=== PATIENT | female | born 2000 | race Caucasian/White ===

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

== ENCOUNTER 2019-01-30 23:11 | Emergency (ER) | payer SELFPAY ==
[~2019-01-30] VITALS: Ht 170.2 cm; Wt 111.1 kg
--- NOTE | 2019-01-30 23:37 | ED Pediatric Illness ---
HPI-Pediatric Illness General Chief Complaint: Abdominal/GI Problems Stated Complaint: SHARP ABD PAIN Source: patient Exam Limitations: no limitations History of Present Illness Date Seen by Provider: January 30, 2019 Time Seen by Provider: 23:34 Initial Comments Patient is a 18-year-old female presents with a sharp sudden onset left lower quadrant/pelvic pain starting approximately 24 hours ago. Pain is described as dull nonradiating is rated 9/10. Pain is not associated with urinary frequency urgency or dysuria. No hematuria. No flank pain, nausea vomiting. Denies constipation diarrhea. Last bowel movement was yesterday and was reported as normal. Last menstrual period was 3 days ago. Patient is currently taking oral contraceptive pill. No history of kidney stones. Denies history of ovarian cysts. Does report fatigue secondary No fever chills, sweats. No other acute symptoms or complaints. Timing/Duration: 24 hours Severity: severe Associated Symptoms: less active Modifying Factors: improves with Rest Allergies and Home Medications Allergies Coded Allergies: azithromycin (Verified Allergy, Unknown, hives, 01/30/19) "breaks me out" Patient Home Medication List Home Medication List Reviewed: Yes Review of Systems Review of Systems Constitutional: see HPI EENTM: see HPI, no symptoms reported Respiratory: no symptoms reported Cardiovascular: no symptoms reported Gastrointestinal: see HPI Genitourinary: see HPI Musculoskeletal: no symptoms reported Skin: no symptoms reported Psychiatric/Neurological: No Symptoms Reported, Emotional Problems PMH-Pediatrics Recent Foreign Travel: No Contact w/other who traveled: No Physical Exam-Pediatric Physical Exam Vital Signs - First Documented Capillary Refill : Height, Weight, BMI Height: '" Weight: lbs. oz. kg; BMI Method: General Appearance: no acute distress, active HENT: PERRL, nose normal Neck: full range of motion, supple Respiratory: lungs clear, normal breath sounds Gastrointestinal: soft, tenderness (left lower quadrant/pelvic, no palpable masses or hernias.) Extremities: normal range of motion Neurologic/Psychiatric: kitman II-XII nml as tested, no motor/sensory deficits Skin: normal color, warm/dry Progress/Results/Core Measures Results/Orders Lab Results Laboratory Tests Test 01/30/19 23:19 Range/Units Urine Color YELLOW Urine Clarity SLT CLOUDY Urine pH 6.0 5-9 Urine Specific [place] 1.025 H 1.016-1.022 Urine Protein TRACE NEGATIVE Urine Glucose (UA) NEGATIVE NEGATIVE Urine Ketones NEGATIVE NEGATIVE Urine Nitrite NEGATIVE NEGATIVE Urine Bilirubin NEGATIVE NEGATIVE Urine Urobilinogen 1.0 NORMAL MG/DL Urine Leukocyte Esterase TRACE H NEGATIVE Urine RBC (Auto) 3+ H NEGATIVE Urine Test NEGATIVE NEGATIVE My Orders Orders - MARY CAGLE DO Hcg,Qualitative Urine (01/30/19 23:30) Oxycodone/Apap 5/325mg Tablet (Percocet (01/30/19 23:45) Urinalysis Dipstick Only (01/31/19 00:01) Ct Abdomen/Pelvis Wo (01/31/19 00:01) Medications Given in ED Current Medications Medications Dose Ordered Sig/Kevin Route Start Time Stop Time Status Last Admin Dose Admin Oxycodone/ Acetaminophen 1 tab ONCE ONCE PO 01/30/19 23:45 01/30/19 23:46 DC 01/30/19 23:45 1 TAB Vital Signs/I&O 01/30/19 01/30/19 23:24 23:24 Temp 97.6 97.6 Pulse 94 94 Resp 20 20 B/P (MAP) 135/86 135/86 Pulse Ox 96 O2 Delivery Room Air Room Air Departure Communication (Admissions) CT abdomen and pelvis without contrast: No acute intra-abdominal/pelvic process identified per radiologist. Patient's abdomen soft, nonsurgical. Pain controlled treatment. Recommend supportive care with PCP follow-up. Return depressions reviewed. Impression Primary Impression: Pelvic pain Disposition: 01 HOME, SELF-CARE Condition: Improved Departure-Patient Inst. Referrals: NO,LOCAL PHYSICIAN (PCP) Primary Care Physician Patient Instructions: Acute Pelvic Pain (DC) Add. Discharge Instructions: You were evaluated in the emergency department for pelvic pain. A urinalysis was performed and does not show evidence of infection. CT scan was performed does not demonstrate kidney stones or other acute sources of pain. Please take ibuprofen 3 times daily and hydrocodone as needed for additional relief. Follow up with your PCP in 2-3 days for reevaluation if symptoms persist. Return to the ED if new or worsening symptoms. All discharge instructions reviewed with patient and/or family. Voiced understanding. Scripts Hydrocodone/Acetaminophen ([place] 5-325 Tablet) 1 Each Tablet 1 TAB PO Q4-6HR for Pain MDD 10 TABS for 3 Days, #10 TAB Prov: MARY CAGLE DO 01/31/19 MARY CAGLE DO January 30, 2019 23:37
[2019-01-30] MEDS ORDERED: oxyCODONE/APAP 5/325MG (PERCOCET 5) TABLET PO ONE (23:45)
--- OUTSIDE RECORDS SUMMARY | 2019-01-31 00:02 | XMS REPORT | Continuity of Care Document ---
Author Organization Unknown Address Unknown Allergies There is no data. Medications There is no data. Problems There is no data. Procedures There is no data. Results Test Result Range HCG, QUANTITATIVE - 01/02/19 15:20 HCG, TOTAL, QN <2 mIU/mL NRG GC/CHLAMYDIA (SWAB OR URINE)-RAPID - 01/02/19 15:33 CHLAMYDIA TRACHOMATIS RNA, TMA NOT DETECTED NOT DETECTED NEISSERIA GONORRHOEAE RNA, TMA NOT DETECTED NOT DETECTED COMMENT NRG HCG, QUANTITATIVE - 01/02/19 15:33 HCG, TOTAL, QN NRG Encounters ACCT No. Visit Date/Time Discharge Status Pt. Type Provider Facility Loc./Unit Complaint [id number] 12/10/2018 13:40:00 12/10/2018 23:59:59 CLS Outpatient [facility] [id number] 01/02/2019 14:49:00 Document Registration [id number] 01/02/2019 14:45:00 Document Registration
[2019-01-31 00:05] LABS: BILIRUBIN,URINE NEGATIVE (NEGATIVE); CLARITY,URINE SLT CLOUDY; COLOR,URINE YELLOW; GLUCOSE, URINE (UA) NEGATIVE (NEGATIVE); KETONES,URINE NEGATIVE (NEGATIVE); LEUKOCYTE ESTERASE ,URINE TRACE (NEGATIVE); NITRITE,URINE NEGATIVE (NEGATIVE); PROTEIN,URINE TRACE (NEGATIVE)
[2019-01-31] MEDS ORDERED: IBUPROFEN TABLET 200 MG TAB PO ONE ×2 (00:46→01:00)
[2019-01-31] MEDS ORDERED: HYDR-4226 PO (00:47)
--- NOTE | 2019-01-31 06:33 | Diagnostic Imaging Report ---
PROCEDURE: CT abdomen and pelvis without contrast. TECHNIQUE: Multiple contiguous axial images were obtained through the abdomen and pelvis without the use of intravenous contrast. Auto Exposure Controls were utilized during the CT exam to meet ALARA standards for radiation dose reduction. INDICATION: Left lower quadrant pain COMPARISON: None available FINDINGS: The visualized lung bases are clear. The unenhanced liver, spleen, adrenal glands, and pancreas are unremarkable. The kidneys and bilateral ureters are unremarkable. No aneurysmal dilatation of the abdominal aorta. The gallbladder is completely decompressed. The urinary bladder is decompressed, therefore not well evaluated. The uterus and adnexal structures are unremarkable. The appendix is unremarkable. No bowel obstruction or pneumatosis. No significant adenopathy, free air, or free fluid within the abdomen or pelvis. No acute osseous abnormality. IMPRESSION: No acute abnormality. Agree with preliminary interpretation. Dictated by: Dictated on workstation # [id number]
== END 2019-01-31 00:53 | disposition home or self-care (01) ==
LOC: EDUNIT# 23:11 → ER FS 23:14
DX: R10.2 Pelvic and perineal pain (principal); Z88.1 Allergy status to other antibiotic agents
CPT/HCPCS: 74176; 81002; 84703

== ENCOUNTER 2019-05-19 15:52 | Emergency (ER) | payer SELFPAY ==
[~2019-05-19] VITALS: Ht 170.1 cm; Wt 102.2 kg
[~2019-05-19 15:52] MED LIST: HYDR-4226 PO
[2019-05-19] MEDS ORDERED: ACTIVATED CHARCOAL/SORBITOL 50 G/240 ML BTL ONE (16:05)
[2019-05-19] MEDS ORDERED: CHARCOAL/AQUEOUS 50 GM/240 ML BTL ONE (16:07)
[2019-05-19] MEDS ORDERED: CHARCOAL/AQUEOUS 50 GM/240 ML BTL PO ONE (16:15)
--- NOTE | 2019-05-19 16:43 | Diagnostic Imaging Report ---
INDICATION: Drug overdose. EXAMINATION: Portable chest at 4:09 PM. FINDINGS: The heart size and pulmonary vascularity are normal. The lungs are clear. There are no effusions or pneumothoraces. IMPRESSION: Negative chest. Dictated by: Dictated on workstation # [id number]
[2019-05-19 16:45] LABS: BASOPHILS % (AUTO) 0 % (0-10); EOSINOPHILS % (AUTO) 5 % (0-10); HEMATOCRIT 46 % (35-52); HEMOGLOBIN 14.7 G/DL (11.5-16.0); LYMPHOCYTES % (AUTO) 20 % (12-44); MEAN CORPUSCULAR HEMOGLOBIN 27 PG (25-34); MEAN CORPUSCULAR HGB CONC 32 G/DL (32-36); MEAN CORPUSCULAR VOLUME 86 FL (80-99); MEAN PLATELET VOLUME 12.1 FL (7.4-10.4); MONOCYTES % (AUTO) 5 % (0-12); NEUTROPHILS % (AUTO) 70 % (42-75); PLATELET COUNT 210 10^3/uL (130-400); RED CELL DISTRIBUTION WIDTH 13.7 % (10.0-14.5); WHITE BLOOD COUNT 9.9 10^3/uL (4.3-11.0)
[2019-05-19 16:46] LABS: CARBON DIOXIDE 25 MMOL/L (21-32); CHLORIDE 98 MMOL/L (98-107); EOSINOPHILS # (AUTO) 0.5 10^3/uL (0.0-0.3); MONOCYTES # (AUTO) 0.5 X 10^3 (0.0-1.0); NEUTROPHILS # (AUTO) 6.9 X 10^3 (1.8-7.8); POTASSIUM 3.8 MMOL/L (3.6-5.0); SODIUM 137 MMOL/L (135-145)
[2019-05-19 16:47] LABS: ACETAMINOPHEN < 10 UG/ML (10-30); ALANINE AMINOTRANSFERASE 37 U/L (0-55); ALBUMIN 4.1 GM/DL (3.2-4.5); ALKALINE PHOSPHATASE 73 U/L (40-136); BILIRUBIN,TOTAL 0.4 MG/DL (0.1-1.0); BUN/CREATININE RATIO 11; CALCIUM 9.8 MG/DL (8.5-10.1); CREATININE SERUM 0.87 MG/DL (0.60-1.30); GFR ESTIMATED > 60; GLUCOSE 91 MG/DL (70-105); SALICYLATE < 0.3 MG/DL (5.0-20.0); TOTAL PROTEIN 7.4 GM/DL (6.4-8.2)
[2019-05-19 18:15] LABS: AMPHETAMINE SCREEN, URINE NEGATIVE (NEGATIVE); BARBITURATE SCREEN URINE NEGATIVE (NEGATIVE); BENZODIAZEPINES SCREEN URINE NEGATIVE (NEGATIVE); CANNABINOID SCREEN, URINE NEGATIVE (NEGATIVE); COCAINE SCREEN URINE NEGATIVE (NEGATIVE); METHADONE STAT NEGATIVE (NEGATIVE); METHAMPHETAMINE SCREEN URINE S NEGATIVE (NEGATIVE); OPIATE SCREEN URINE NEGATIVE (NEGATIVE); OXYCODONE STAT NEGATIVE (NEGATIVE); PROPOXYPHENE STAT NEGATIVE (NEGATIVE); TRICYCLIC ANTIDEPRESSANTS SCRE NEGATIVE (NEGATIVE)
--- NOTE | 2019-05-19 18:22 | NUR ---
Call to [facility] to request screener. Pt's info requested prior to planning this screening wanting insurance and Social Security # which can not be provided prior to tx. Pt is received to ER irregardless of patient's financial. Again proceed with needing to fax the medical screening results to them as requested.
--- NOTE | 2019-05-19 19:03 | ED Neurological Problem ---
General Chief Complaint: Overdose Stated Complaint: OVERDOSE Nursing Triage Note: Patient arrival per [facility] for OD. The EMS report was took approx 30 tabs of Latuda and the Fire First responders on scene called Poison Control for recommendation. Activated charcoal recommended and evaluation in ER. Pt arrives without IV or treatment. Source: patient Exam Limitations: no limitations History of Present Illness Date Seen by Provider: May 19, 2019 Time Seen by Provider: 15:00 Initial Comments Patient is an 18-year-old female with history of bipolar schizophrenia who states that she intentionally took #5, Latuda tablets approximately 45 minutes prior to ED arrival and attempt to go to sleep. Patient denies co-ingestant. She denies intent to harm or kill her self. Patient told a friend who then contacted EMS. Reports feeling drowsy. Denies chest pain palpitations headache. Denies drugs not call. Reports prior overdoses with inpatient hospitalization in [place] at age 15. Timing/Duration: 1 hour Associated Symptoms: denies symptoms Allergies and Home Medications Allergies Coded Allergies: azithromycin (Verified Allergy, Unknown, hives, 01/30/19) "breaks me out" Home Medications Hydrocodone/Acetaminophen 1 Each Tablet, 1 TAB PO Q4-6HR Prescribed by: MARY CAGLE on 01/31/19 0047 Patient Home Medication List Home Medication List Reviewed: Yes Review of Systems Review of Systems Constitutional: see HPI Eyes: See HPI Ears, Nose, Mouth, Throat: see HPI Respiratory: see HPI Gastrointestinal: see HPI Genitourinary: see HPI : No (Denies , can not afford BCP's) Musculoskeletal: see HPI Endocrine: See HPI Past Etqctze-Ixgqip-Phheaj Hx Patient Social History Alcohol Use: Rarely Uses Number of Drinks Today: 0 Recreational Drug Use: No Smoking Status: Current Everyday Smoker Type Used: Cigarettes Recent Foreign Travel: No Contact w/Someone Who Travel: No Recent Infectious Disease Expo: No Recent Hopitalizations: No Immunizations Up To Date PED Vaccines UTD: Yes Seasonal Allergies Seasonal Allergies: No Past Medical History Surgeries: No Respiratory: No Cardiac: No Neurological: No Genitourinary: No Gastrointestinal: No Musculoskeletal: No Endocrine: No HEENT: No Cancer: No Psychosocial: Yes Bipolar Integumentary: No Blood Disorders: No Physical Exam Vital Signs Vital Signs - First Documented 05/19/19 15:52 Temp 36.8 Pulse 88 Resp 18 B/P (MAP) 138/79 O2 Delivery Room Air Capillary Refill : Height, Weight, BMI Height: 5'7.00" Weight: 245lbs. 0oz. [id number]; 35.00 BMI Method:Stated General Appearance: WD/WN, no apparent distress HEENT: PERRL/EOMI, normal ENT inspection Neck: full range of motion, supple Respiratory: chest non-tender, lungs clear Cardiovascular: normal peripheral pulses, regular rate, rhythm, no edema Gastrointestinal: normal bowel sounds, non tender, soft Extremities: normal range of motion, non-tender, normal inspection Neurologic/Psychiatric: economic manager II-XII nml as tested, no motor/sensory deficits, alert, normal mood/affect, oriented x 3, other (no SI or HI.) Crainal Nerves: normal hearing, normal speech, PERRL Progress/Results/Core Measures Results/Orders Lab Results Laboratory Tests Test 05/19/19 16:00 05/19/19 16:26 Range/Units White Blood Count 9.9 4.3-11.0 10^3/uL Red Blood Count 5.41 4.35-5.85 10^6/uL Hemoglobin 14.7 11.5-16.0 G/DL Hematocrit 46 35-52 % Mean Corpuscular Volume 86 80-99 FL Mean Corpuscular Hemoglobin 27 25-34 PG Mean Corpuscular Hemoglobin Concent 32 32-36 G/DL Red Cell Distribution Width 13.7 10.0-14.5 % Platelet Count 210 130-400 10^3/uL Mean Platelet Volume 12.1 H 7.4-10.4 FL Neutrophils (%) (Auto) 70 42-75 % Lymphocytes (%) (Auto) 20 12-44 % Monocytes (%) (Auto) 5 0-12 % Eosinophils (%) (Auto) 5 0-10 % Basophils (%) (Auto) 0 0-10 % Neutrophils # (Auto) 6.9 1.8-7.8 X 10^3 Lymphocytes # (Auto) 2.0 1.0-4.0 X 10^3 Monocytes # (Auto) 0.5 0.0-1.0 X 10^3 Eosinophils # (Auto) 0.5 H 0.0-0.3 10^3/uL Basophils # (Auto) 0.0 0.0-0.1 10^3/uL Sodium Level 137 135-145 MMOL/L Potassium Level 3.8 3.6-5.0 MMOL/L Chloride Level 98 98-107 MMOL/L Carbon Dioxide Level 25 21-32 MMOL/L Anion Gap 14 5-14 MMOL/L Blood Urea Nitrogen 10 7-18 MG/DL Creatinine 0.87 0.60-1.30 MG/DL Estimat Glomerular Filtration Rate > 60 BUN/Creatinine Ratio 11 Glucose Level 91 70-105 MG/DL Calcium Level 9.8 8.5-10.1 MG/DL Corrected Calcium 9.7 8.5-10.1 MG/DL Total Bilirubin 0.4 0.1-1.0 MG/DL Aspartate Amino Transf (AST/SGOT) 31 5-34 U/L Alanine Aminotransferase (ALT/SGPT) 37 0-55 U/L Alkaline Phosphatase 73 40-136 U/L Total Protein 7.4 6.4-8.2 GM/DL Albumin 4.1 3.2-4.5 GM/DL Serum Test, Qualitative NEGATIVE NEGATIVE Salicylates Level < 0.3 L 5.0-20.0 MG/DL Acetaminophen Level < 10 L 10-30 UG/ML Serum Alcohol < 10 <10 MG/DL Urine Opiates Screen NEGATIVE NEGATIVE Urine Oxycodone Screen NEGATIVE NEGATIVE Urine Methadone Screen NEGATIVE NEGATIVE Urine Propoxyphene Screen NEGATIVE NEGATIVE Urine Barbiturates Screen NEGATIVE NEGATIVE Ur Tricyclic Antidepressants Screen NEGATIVE NEGATIVE Urine Phencyclidine Screen NEGATIVE NEGATIVE Urine Amphetamines Screen NEGATIVE NEGATIVE Urine Methamphetamines Screen NEGATIVE NEGATIVE Urine Benzodiazepines Screen NEGATIVE NEGATIVE Urine Cocaine Screen NEGATIVE NEGATIVE Urine Cannabinoids Screen NEGATIVE NEGATIVE My Orders Orders - MARY CAGLE DO Cbc With Automated Diff (05/19/19 16:04) Comprehensive Metabolic Panel (05/19/19 16:04) Ekg Tracing (05/19/19 16:04) Hcg,Qualitative Serum (05/19/19 16:10) Drug Screen Stat (Urine) (05/19/19 16:10) Alcohol (05/19/19 16:10) Acetaminophen (05/19/19 16:10) Salicylate (05/19/19 16:10) Charcoal Activated Aqueous (Actidose Aqu (05/19/19 16:15) Charcoal/Sorbitol Oral Susp (Actidose/So (05/19/19 16:05) Charcoal Activated Aqueous (Actidose Aqu (05/19/19 16:07) Chest 1 View Ap/Pa Only (05/19/19 ) Medications Given in ED Current Medications Medications Dose Ordered Sig/Kevin Route Start Time Stop Time Status Last Admin Dose Admin Charcoal 50 gm ONCE ONCE PO 05/19/19 16:15 05/19/19 16:16 DC 05/19/19 16:15 50 GM Vital Signs/I&O 05/19/19 15:52 Temp 36.8 Pulse 88 Resp 18 B/P (MAP) 138/79 O2 Delivery Room Air Departure Communication (Admissions) Patient observed in the ED 4 hours post overdose. Vital signs remained stable. Patient reports initially feeling fatigued with slurred speech but now feels symptoms have now improved. Patient screened bite calcite professional. Reportedly, the patient told the screener that she did not really take the medications and that it was attempted for attention. The consultants recommendations are to discharge the patient home with outpatient follow-up. Patient was comfortable with discharge plan Impression Primary Impression: Overdose Disposition: 01 HOME, SELF-CARE Condition: Stable Departure-Patient Inst. Referrals: NO,LOCAL PHYSICIAN (PCP) Primary Care Physician Add. Discharge Instructions: Please take medications only as prescribed and follow-up with your corrections caseworker or mental health counsellor in the next 1-2 days. Return to the ED if symptoms worsen. All discharge instructions reviewed with patient and/or family. Voiced understanding. MARY CAGLE DO May 19, 2019 19:03
--- NOTE | 2019-05-19 19:07 | NUR ---
Patient resting awake after trying to get up at 1900 stating wanting to go home. Explained work up not completed and screener needs to return call and begin screening hopefully shortly. Pt agrees to remain with SL in place and monitors on as ordered. Report to Anne Marie MULLINS.
--- NOTE | 2019-05-19 19:31 | NUR ---
PT. TALKING WITH MENTAL HEALTH AT THIS TIME.
--- NOTE | 2019-05-19 19:32 | NUR ---
PT. REPORTED TO MENTAL HEALTH THAT SHE TOOK 10 LATUDA
== END 2019-05-19 20:16 | disposition home or self-care (01) ==
LOC: EDUNIT# 16:01 → ER FS 16:02
DX: T43.592A Poisoning by other antipsychotics and neuroleptics, intentional self-harm, initial encounter (principal); F31.9 Bipolar disorder, unspecified; F20.9 Schizophrenia, unspecified; F17.210 Nicotine dependence, cigarettes, uncomplicated; Z88.1 Allergy status to other antibiotic agents
CPT/HCPCS: 36415; 71045; 80053; 80306; 80320; 80329; 84703; 85025; 93005

== ENCOUNTER 2020-05-02 14:47 | Emergency (ER) | payer OTHER ==
[~2020-05-02] VITALS: Ht 170.2 cm; Wt 112.0 kg
[2020-05-02 14:52] VITALS: BP 133/78
--- NOTE | 2020-05-02 14:56 | ED General ---
General Chief Complaint: Trauma-Non Activation Stated Complaint: LT ANKLE PAIN; BACK/RIB PAIN History of Present Illness Date Seen by Provider: May 02, 2020 Time Seen by Provider: 14:55 Initial Comments Patient is a 19 y/o female who comes to the ER today c/o injury to the left ankle. She jumped off a roof attempting to land on a trampoline but states she missed. No head injury or LOC. She has no n/v or vision changes. Complains of generalized back pain and rib pain. Primary complaint is left ankle pain and swelling. Allergies and Home Medications Allergies Coded Allergies: azithromycin (Verified Allergy, Unknown, hives, 01/30/19) "breaks me out" Home Medications Hydrocodone/Acetaminophen 1 Each Tablet, 1 TAB PO Q4-6HR Prescribed by: MARY CAGLE on 01/31/19 0047 Patient Home Medication List Home Medication List Reviewed: Yes Review of Systems Review of Systems Constitutional: no symptoms reported EENTM: no symptoms reported Respiratory: no symptoms reported Cardiovascular: no symptoms reported Musculoskeletal: see HPI Skin: no symptoms reported All Other Systems Reviewed Negative Unless Noted: Yes Past Qghsluh-Mcbuvz-Btcbfc Hx Patient Social History Type Used: Cigarettes Recent Hopitalizations: No Immunizations Up To Date PED Vaccines UTD: Yes Seasonal Allergies Seasonal Allergies: No Past Medical History Surgeries: No Respiratory: No Cardiac: No Neurological: No Genitourinary: No Gastrointestinal: No Musculoskeletal: No Endocrine: No HEENT: No Cancer: No Psychosocial: Yes Bipolar Integumentary: No Blood Disorders: No Physical Exam Vital Signs Vital Signs - First Documented 05/02/20 14:52 Temp 36.1 Pulse 107 Resp 16 B/P (MAP) 133/78 (96) Pulse Ox 97 O2 Delivery Room Air Capillary Refill : Height, Weight, BMI Height: 5'7.00" Weight: 245lbs. 0oz. 111.381966ie; 35.00 BMI Method:Stated General Appearance: No Apparent Distress, WD/WN HEENT: PERRL/EOMI, TMs Normal, Normal ENT Inspection Neck: Full Range of Motion, Non Tender Respiratory: Lungs Clear, Normal Breath Sounds Cardiovascular: Regular Rate, Rhythm Back: No CVA Tenderness, No Vertebral Tenderness Extremity: Normal Capillary Refill, Other (mild soft tissue swelling and point tenderness along the lateral malleolus left ankle. 2+ dp pulses. Sensation to light touch intact over all dermatomes. No laxity with ligamentous testing.) Skin: Normal Color Progress/Results/Core Measures Suspected Sepsis SIRS Temperature: Pulse: Respiratory Rate: Blood Pressure / Mean: Results/Orders My Orders Orders - MARIA R VALENTINO DO Ankle 3 View Left (05/02/20 14:56) Chest 1 View Ap/Pa Only (05/02/20 15:02) Air Strup Ankle Brace (05/02/20 15:28) Vital Signs/I&O 05/02/20 14:52 Temp 36.1 Pulse 107 Resp 16 B/P (MAP) 133/78 (96) Pulse Ox 97 O2 Delivery Room Air Capillary Refill : Progress Note : Time: 14:58 Progress Note Patient is seen and examined. PE as documented above. Plain film XR of ankle ordered. 15:45: No acute findings on plain film imaging. Patient is discharged to home. Aircast applied for comfort. Recommended to use tylenol or motrin as needed for discomfort. RICE therapy. F/u with PCP as needed. Departure Impression Primary Impression: Ankle sprain Additional Impression: Contusion of left foot Disposition: 01 HOME, SELF-CARE Condition: Improved Departure-Patient Inst. Referrals: [facility] (PCP) Primary Care Physician KERRIE CALVIN APRN (Family) Primary Care Physician MARIA R VALENTINO DO May 02, 2020 14:56
--- NOTE | 2020-05-02 15:29 | Diagnostic Imaging Report ---
PATIENT HISTORY: fall, rib pain. TECHNIQUE: Single frontal view of the chest. COMPARISON: None FINDINGS: The lung volumes are normal. No focal consolidation is seen. No large pleural effusion or pneumothorax is seen. The cardiomediastinal silhouette is normal in size and contour. No displaced rib fracture is seen. IMPRESSION: No acute pulmonary abnormality seen. No displaced rib fracture seen. Dictated by: Dictated on workstation # [id number]
--- NOTE | 2020-05-02 15:35 | Diagnostic Imaging Report ---
HISTORY: Trauma, left ankle pain. COMPARISON: None. TECHNIQUE: Three views of the left ankle. FINDINGS: Alignment is normal. Ankle mortise is symmetric. There is a moderate left ankle joint effusion. A small hyperdensity is seen dorsal to the talar head. IMPRESSION: 1. Small hyperdensity dorsal to the left talar head could represent a chip fracture or avulsion injury of the anterior capsule. No other fracture is seen. 2. Moderate left ankle joint effusion. Dictated by: Dictated on workstation # [id number]
== END 2020-05-02 15:40 | disposition home or self-care (01) ==
LOC: EDUNIT# 14:47 → ER FS 14:49
DX: S93.402A Sprain of unspecified ligament of left ankle, initial encounter (principal); S90.32XA Contusion of left foot, initial encounter; Z88.1 Allergy status to other antibiotic agents; Y93.39 Activity, other involving climbing, rappelling and jumping off
CPT/HCPCS: 71045; 73610

== ENCOUNTER 2020-11-17 22:21 | Emergency (ER) | payer SELFPAY ==
[~2020-11-17] VITALS: Ht 172.7 cm; Wt 116.4 kg
[2020-11-17 22:30] VITALS: BP 146/84
--- NOTE | 2020-11-17 22:44 | ED GU-Female ---
General Chief Complaint: Female Reproductive Stated Complaint: BLOODY DISCHARGE FROM VAGINAL AREA/SORENESS History of Present Illness Date Seen by Provider: Nov 17, 2020 Time Seen by Provider: 22:39 Initial Comments 19-year-old female presents with some dysuria, vaginal discomfort and suprapubic pain. Patient reports that her last menstrual period started on 11/08/2020. That she had intercourse on 11/12/2020 while she is still on her menstrual cycle. Patient reports that she had not had intercourse in 3 years prior to that. That she is a little sore in the vaginal vault. She presents today because she just wants to be evaluated make sure things okay. Patient reports she had protected intercourse. Allergies and Home Medications Allergies Coded Allergies: azithromycin (Verified Allergy, Unknown, hives, 01/30/19) "breaks me out" Home Medications Hydrocodone/Acetaminophen 1 Each Tablet, 1 TAB PO Q4-6HR Prescribed by: MARY CAGLE on 01/31/19 0047 Sulfamethoxazole/Trimethoprim 1 Each Tablet, 1 EACH PO BID Prescribed by: LOUIS ALCOCER on 11/17/20 2302 Patient Home Medication List Home Medication List Reviewed: Yes Review of Systems Review of Systems Constitutional: No chills, No fever Respiratory: no symptoms reported Cardiovascular: no symptoms reported Gastrointestinal: no symptoms reported Genitourinary: see HPI Musculoskeletal: no symptoms reported Skin: no symptoms reported Psychiatric/Neurological: No Symptoms Reported Endocrine: No Symptoms Reported Hematologic/Lymphatic: No Symptoms Reported Past Blajzpy-Jchahd-Xpnudd Hx Past Med/Social Hx: Reviewed Nursing Past Med/Soc Hx Patient Social History Type Used: Electronic/Vapor 2nd Hand Smoke Exposure: Yes Recent Hopitalizations: No Immunizations Up To Date PED Vaccines UTD: Yes Seasonal Allergies Seasonal Allergies: No Past Medical History Surgeries: No Respiratory: No Cardiac: No Neurological: No Genitourinary: No Gastrointestinal: No Musculoskeletal: No Endocrine: No HEENT: No Cancer: No Psychosocial: Yes Bipolar Integumentary: No Blood Disorders: No Physical Exam Vital Signs Vital Signs - First Documented 11/17/20 22:30 Temp 35.9 Pulse 95 Resp 16 B/P (MAP) 146/84 (104) Pulse Ox 99 O2 Delivery Room Air Capillary Refill : Height, Weight, BMI Height: 5'7.00" Weight: 245lbs. 0oz. 111.892062hx; 38.00 BMI Method:Stated General Appearance: no apparent distress Cardiovascular: normal peripheral pulses, regular rate, rhythm Respiratory: chest non-tender, lungs clear Gastrointestinal: non tender, soft Extremities: normal range of motion Neurologic/Psychiatric: alert, normal mood/affect, oriented x 3 Skin: tattoos/piercings Progress/Results/Core Measures Suspected Sepsis SIRS Temperature: Pulse: Respiratory Rate: Blood Pressure / Mean: Results/Orders Lab Results Laboratory Tests Test 11/17/20 22:25 Range/Units Urine Color DK YELLOW Urine Clarity SLT CLOUDY Urine pH 6.0 5-9 Urine Specific Marshall >=1.030 1.016-1.022 Urine Protein TRACE H NEGATIVE Urine Glucose (UA) NEGATIVE NEGATIVE Urine Ketones TRACE H NEGATIVE Urine Nitrite NEGATIVE NEGATIVE Urine Bilirubin 1+ H NEGATIVE Urine Urobilinogen 0.2 < = 1.0 MG/DL Urine Leukocyte Esterase NEGATIVE NEGATIVE Urine RBC (Auto) 2+ H NEGATIVE Urine RBC 5-10 H /HPF Urine WBC 2-5 /HPF Urine Squamous Epithelial Cells 2-5 /HPF Urine Crystals PRESENT H /LPF Urine Amorphous Sediment FEW ZAK URATES H /LPF Urine Bacteria FEW H /HPF Urine Casts NONE /LPF Urine Mucus MODERATE H /LPF Urine Culture Indicated YES Urine Test NEGATIVE NEGATIVE My Orders Orders - ALCOCER,LOUIS L DO Ua Culture If Indicated (11/17/20 22:29) Hcg,Qualitative Urine (11/17/20 22:29) Urine Culture (11/17/20 22:25) Chlamydia Trachomatis Urine (11/17/20 22:57) Neis Finesse Dna Urine Test (11/17/20 22:57) Vital Signs/I&O 11/17/20 22:30 Temp 35.9 Pulse 95 Resp 16 B/P (MAP) 146/84 (104) Pulse Ox 99 O2 Delivery Room Air Capillary Refill : Progress Note : Progress Note Patient with urinary tract infection. Patient does have some vaginal discomfort following intercourse. She was offered a pelvic exam. She deferred at this time. Patient felt that she would rather try to treat her urinary tract infection, if her symptoms have not improved in the next 2 to 3 days she will follow-up with her primary care provider for further evaluation. I recommend that if it continues to worsen she return to the ER for further evaluation or sooner with her primary care provider. Departure Impression Primary Impression: Postcoital bleeding Additional Impression: Postcoital UTI Disposition: 01 HOME, SELF-CARE Condition: Stable Departure-Patient Inst. Referrals: [facility] (PCP) Primary Care Physician KERRIE CALVNI APRN (Family) Primary Care Physician Patient Instructions: Urinary Tract Infection, Adult (DC) Add. Discharge Instructions: azo for bladder spasms, available [id number]-[id number] at [facility] [employer] or [facility] Follow-up with your primary care provider in 2 to 3 days for recheck of today's symptoms sooner if symptoms are worsening Return to the ER as needed if symptoms continue to worsen All discharge instructions reviewed with patient and/or family. Voiced understanding. Scripts Sulfamethoxazole/Trimethoprim (Bactrim Ds Tablet) 1 Each Tablet 1 EACH PO BID, #10 TAB Prov: LOUIS ALCOCER DO 11/17/20 LOUIS ALCOCER DO Nov 17, 2020 22:44
[2020-11-17 22:48] LABS: CLARITY,URINE SLT CLOUDY; COLOR,URINE DK YELLOW
[2020-11-17 22:49] LABS: BILIRUBIN,URINE 1+ (NEGATIVE); GLUCOSE, URINE (UA) NEGATIVE (NEGATIVE); KETONES,URINE TRACE (NEGATIVE); LEUKOCYTE ESTERASE ,URINE NEGATIVE (NEGATIVE); NITRITE,URINE NEGATIVE (NEGATIVE); PROTEIN,URINE TRACE (NEGATIVE)
[2020-11-17 22:50] LABS: AMORPHOUS SEDIMENT,UR FEW AMOR URATES /LPF; BACTERIA,URINE FEW /HPF
[2020-11-17] MEDS ORDERED: SULF1TAB35 PO (23:05)
== END 2020-11-17 23:14 | disposition home or self-care (01) ==
LOC: EDUNIT# 22:21 → ER FS 22:23
DX: N93.0 Postcoital and contact bleeding (principal); N39.8 Other specified disorders of urinary system; Z77.22 Contact with and (suspected) exposure to environmental tobacco smoke (acute) (chronic); Z88.1 Allergy status to other antibiotic agents
CPT/HCPCS: 36415; 81000; 84703; 87088; 87491; 87591; 99282

== ENCOUNTER 2022-01-29 19:31 | Emergency (ER) | payer MEDICAID, OTHER ==
[~2022-01-29 19:31] MED LIST changes: +SULF1TAB38 PO
[2022-01-29] MEDS ORDERED: fentaNYL INJ 100 MCG/2 ML AMP IM STA (19:47)
[2022-01-29] MEDS ORDERED: KETOROLAC 60 MG/2 ML VIAL IM STA (19:47)
--- NOTE | 2022-01-29 19:54 | ED Lower Extremity ---
General Chief Complaint: Lower Extremity Stated Complaint: LEFT KNEE PAIN/SWELLING Nursing Triage Note: Pt complaining of left knee pain, no new injury Source: patient History of Present Illness Date Seen by Provider: January 29, 2022 Time Seen by Provider: 19:36 Initial Comments 21-year-old female presenting with complaints of arthritis in her left knee. She states that she has arthritis in both knees but her left knee is worse. She has had increased pain in the left knee especially in the last few days. She states that initially she has had no injury to make the pain worse but then she remembered that she had fallen on her knee while going up the stairs earlier this week. She has been seen in urgent care several times for this. She states that hydrocodone does the best at relieving her pain. She had no Tylenol or ibuprofen at home so she has not taken anything for the pain. She has an appointment to see her nurse practitioner on February 09 to discuss weight loss as well as her knee. Pain/Injury Location: bilateral knee Method of Injury: fell Modifying Factors: Worse With Movement Allergies and Home Medications Allergies Coded Allergies: azithromycin (Verified Allergy, Unknown, hives, 01/30/19) "breaks me out" Patient Home Medication List Home Medication List Reviewed: Yes Hydrocodone/Acetaminophen (Hydrocodone/Acetaminophen 5 MG/325 MG TAB) 1 Each Tablet, 1 TAB PO Q4-6HR Prescribed by: MARY CAGLE on 01/31/19 0047 Ibuprofen (Ibuprofen) 800 Mg Tablet, 800 MG PO Q8H PRN for PAIN Prescribed by: ROSALINA CHEN on 01/29/222016 Sulfamethoxazole/Trimethoprim (Bactrim Ds Tablet) 1 Each Tablet, 1 EACH PO BID Prescribed by: LOUIS ALCOCER on 11/17/20 2305 Review of Systems Constitutional: No chills, No fever EENTM: no symptoms reported Respiratory: no symptoms reported Cardiovascular: no symptoms reported Gastrointestinal: no symptoms reported Genitourinary: no symptoms reported Musculoskeletal: see HPI Skin: No change in color Psychiatric/Neurological: Denies Numbness, Denies Paresthesia Past Rtorhxn-Idpuof-Dcrpva Hx Patient Social History Tobacco Use?: No Use of E-Cig and/or Vaping dev: No Substance use?: No Alcohol Use?: No Pt feels they are or have been: No Immunizations Up To Date PED Vaccines UTD: Yes Seasonal Allergies Seasonal Allergies: No Past Medical History Surgery/Hospitalization HX: Arthritis in Bilateral knees Surgeries: No Respiratory: No Cardiac: No Neurological: No Genitourinary: No Gastrointestinal: No Musculoskeletal: No Endocrine: No HEENT: No Cancer: No Psychosocial: Yes Bipolar, Depression Integumentary: No Blood Disorders: No Physical Exam Vital Signs Vital Signs - First Documented 01/29/22 19:37 Temp 36.6 Pulse 82 Resp 18 B/P (MAP) 146/95 (112) Pulse Ox 100 O2 Delivery Room Air Capillary Refill : Less Than 3 Seconds Height, Weight, BMI Height: 5'7.00" Weight: 245lbs. 0oz. 111.892253xj; 39.00 BMI Method:Stated General Appearance: WD/WN, no apparent distress Cardiovascular: normal peripheral pulses Knees: left knee pain (increased pain with movement and palpation. pt reports it pops at times. no crepitus currently), left knee soft tissue tenderness, left knee swelling Neurologic/Tendon: normal sensation, normal motor functions, normal tendon functions Neurologic/Psychiatric: alert, oriented x 3 Skin: normal color, warm/dry Progress/Results/Core Measures Results/Orders My Orders Orders - ROSALINA CHEN MD Ketorolac Injection (Toradol Injection) (01/29/22 19:47) Fentanyl Inj (Sublimaze Injection) (01/29/22 19:47) Knee 3 View Left (01/29/22 19:48) Knee Immobilizer (01/29/22 19:48) Vital Signs/I&O 01/29/22 01/29/22 19:37 20:18 Temp 36.6 36.6 Pulse 82 82 Resp 18 18 B/P (MAP) 146/95 (112) 146/95 Pulse Ox 100 100 O2 Delivery Room Air Room Air Blood Pressure Mean: 112 Progress Progress Note #1: Progress Note Since she fell on her knee this last week for perform x-rays to ensure there is no new or acute bony injury. Order Toradol for pain and inflammation, fentanyl for more severe pain. Will check to see if we have a knee immobilizer that would fit her leg. Progress Note #2: Progress Note No acute fractures or acute process seen on x-rays of the left knee. Knee immobilizer was placed on the left leg to help rest the knee. Will prescribe anti-inflammatories for home and have patient follow-up through the clinic for continued pain control and management of her chronic knee pain. Patient reports pain improved with medicine. Diagnostic Imaging Diagonstic Imaging: Xray Plain Films/CT/US/NM/MRI: knee Comments NAME: PITER DOVE [facility] REC#: [id number] PT STATUS: REG ER : 2000 PHYSICIAN: ROSALINA CHEN MD ADMIT DATE: 01/29/22/ER FS Draft Date of Exam:01/29/22 KNEE 3 VIEW LEFT EXAMINATION: Left knee radiographs. EXAM DATE: 01/29/2022 7:58 PM. COMPARISON: None available. HISTORY: Knee pain after fall. TECHNIQUE: 3 views. FINDINGS: There is no acute fracture, dislocation or destructive osseous process. The joint spaces are normal. The soft tissues are normal. IMPRESSION: No acute osseous abnormality. Dictated on workstation # [id number] Dict: 01/29/221957 Trans: 01/29/222000 [facility] [id number] Interpreted by: ITALO FITZGERALD DO Electronically signed by: Reviewed: Reviewed by Me Departure Impression Primary Impression: Arthralgia of left knee Disposition: 01 HOME, SELF-CARE Condition: Stable Departure-Patient Inst. Decision time for Depature: 20:16 Referrals: [facility] (PCP) Primary Care Physician KERRIE CALVIN APRN (Family) Primary Care Physician Patient Instructions: Knee Pain ED, Knee Brace ED Add. Discharge Instructions: Try alternating ice and heat you need help with pain information. Take the anti-inflammatories as scheduled to help with pain and inflammation. Follow-up through the clinic as you may need to see physical therapy or orthopedics for continued knee pain. All discharge instructions reviewed with patient and/or family. Voiced understanding. Scripts Ibuprofen (Ibuprofen) 800 Mg Tablet 800 MG PO Q8H PRN for PAIN for 10 Days, #30 TAB 0 Refills Prov: ROSALINA CHEN MD 01/29/22 ROSALINA CHEN MD January 29, 2022 19:54
--- NOTE | 2022-01-29 20:01 | Diagnostic Imaging Report ---
EXAMINATION: Left knee radiographs. EXAM DATE: 01/29/2022 7:58 PM. COMPARISON: None available. HISTORY: Knee pain after fall. TECHNIQUE: 3 views. FINDINGS: There is no acute fracture, dislocation or destructive osseous process. The joint spaces are normal. The soft tissues are normal. IMPRESSION: No acute osseous abnormality. Dictated by: Dictated on workstation # [id number]
[2022-01-29] MEDS ORDERED: IBUP-1780 PO (20:17)
[2022-01-29 20:18] VITALS: BP 146/95
== END 2022-01-29 20:20 | disposition home or self-care (01) ==
LOC: EDUNIT# 19:31 → ER FS 19:35
DX: M17.12 Unilateral primary osteoarthritis, left knee (principal)
CPT/HCPCS: 73562

== ENCOUNTER 2022-04-04 21:34 | Emergency (ER) | payer MEDICAID ==
[~2022-04-04] VITALS: Ht 170.1 cm; Wt 120.0 kg
[~2022-04-04 21:34] MED LIST changes: +IBUP-1780 PO
[2022-04-04] MEDS ORDERED: IBUPROFEN 800 MG (MOTRIN) TAB PO STA (21:51)
--- NOTE | 2022-04-04 22:50 | Diagnostic Imaging Report ---
EXAMINATION: Left knee 3 views HISTORY: Knee injury 01/29/2022 COMPARISON: FINDINGS: The alignment is normal. No fracture is seen. Joint spaces are normal. There is no joint effusion. IMPRESSION: 1. No fracture. Dictated by: Dictated on workstation # [id number]
--- NOTE | 2022-04-04 22:50 | Diagnostic Imaging Report ---
EXAMINATION: Left ankle 3 views HISTORY: Leg injury COMPARISON: 05/02/2020 FINDINGS: The alignment is normal. No fracture is seen. The mortise is intact. Talar dome is normal. Joint spaces are normal. IMPRESSION: 1. No fracture. Dictated by: Dictated on workstation # [id number]
--- NOTE | 2022-04-04 23:21 | ED Lower Extremity ---
General Chief Complaint: Lower Extremity Stated Complaint: FALL, L KNEE PAIN Nursing Triage Note: Patient arrival per [facility] BLS transport from scene of injury. [place] when pt twisted left leg and went down on left knee in grass. No LOC and no visual external trauma; c/o of L knee pain at rest or movement. Pt hx of bilateral knee pain from arthritis with no current NSAIDS, Diclofenac gel, or any other tx utilized. History of having a knee brace previously. Source: patient History of Present Illness Date Seen by Provider: Apr 04, 2022 Time Seen by Provider: 21:34 Initial Comments 21-year-old female presenting by [facility] after she was walking and fell on her left knee. She states that she was walking through grass and her leg twisted and she fell. She has chronic knee pain anyway from arthritis. She is not currently taking any medicine for her arthritis. She reports that previously the diclofenac gel helped on the most to help with her pain. She been told that she should be using her knee brace but does not currently have on e. Onset: just prior to arrival Severity: severe Pain/Injury Location: left knee, left ankle Method of Injury: fell Modifying Factors: Worse With Movement Allergies and Home Medications Allergies Coded Allergies: azithromycin (Verified Allergy, Unknown, hives, 01/30/19) "breaks me out" Patient Home Medication List Home Medication List Reviewed: Yes Diclofenac Sodium (Diclofenac Sodium) 1 % Gel..gram., 100 GM TP UD Prescribed by: ROSALINA CHEN on 04/04/222326 Hydrocodone/Acetaminophen (Hydrocodone/Acetaminophen 5 MG/325 MG TAB) 1 Each Tablet, 1 TAB PO Q4-6HR Prescribed by: MARY CAGLE on 01/31/19 004 Ibuprofen (Ibuprofen) 800 Mg Tablet, 800 MG PO Q8H PRN for PAIN Prescribed by: ROSALINA CHEN on 01/29/222016 Sulfamethoxazole/Trimethoprim (Bactrim Ds Tablet) 1 Each Tablet, 1 EACH PO BID Prescribed by: LOUIS ALCOCER on 11/17/20 2305 Review of Systems Constitutional: No chills, No fever EENTM: no symptoms reported Respiratory: no symptoms reported Cardiovascular: no symptoms reported Gastrointestinal: no symptoms reported Genitourinary: no symptoms reported Musculoskeletal: see HPI Skin: No change in color Psychiatric/Neurological: Anxiety; Denies Numbness, Denies Paresthesia, Denies Weakness Past Hujfpgz-Xhiozp-Enggmz Hx Patient Social History Tobacco Use?: No Use of E-Cig and/or Vaping dev: Yes E-Cig or Vaping type used: Nicotine Use of E-Cig and/or Vaping Guillermo: Current Everyday User Substance use?: No Alcohol Use?: No Immunizations Up To Date PED Vaccines UTD: Yes Influenza Vaccine Up-to-Date: No; Not Current First/Initial COVID19 Vaccinat: May 2021 Second COVID19 Vaccination Elio: May 2021 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: [employer] Seasonal Allergies Seasonal Allergies: No Past Medical History Surgery/Hospitalization HX: Arthritis in Bilateral knees, Bipolar/Depression Surgeries: No Respiratory: No Cardiac: No Neurological: No Genitourinary: No Gastrointestinal: No Musculoskeletal: No Endocrine: No HEENT: No Cancer: No Psychosocial: Yes Bipolar, Depression Integumentary: No Blood Disorders: No Physical Exam Vital Signs Vital Signs - First Documented 04/04/22 21:34 Temp 36.3 Pulse 84 Resp 20 B/P (MAP) 137/74 (95) Pulse Ox 98 O2 Delivery Room Air Capillary Refill : Less Than 3 Seconds Height, Weight, BMI Height: 5'7.00" Weight: 245lbs. 0oz. 111.387723mn; 41.00 BMI Method:Stated General Appearance: WD/WN, no apparent distress, obese HEENT: PERRL/EOMI, pharynx normal Neck: non-tender, full range of motion, supple, normal inspection Cardiovascular: normal peripheral pulses, regular rate, rhythm Respiratory: chest non-tender, lungs clear, normal breath sounds, no respiratory distress, no accessory muscle use Gastrointestinal: normal bowel sounds, non tender, soft, no pulsatile mass Knees: left knee pain (Pain with range of motion), left knee soft tissue tenderness Ankles: left ankle pain, left ankle soft tissue tenderness Neurologic/Tendon: normal sensation, normal motor functions Neurologic/Psychiatric: no motor/sensory deficits, alert, oriented x 3 Skin: normal color, warm/dry; No ecchymosis Progress/Results/Core Measures Results/Orders My Orders Orders - ROSALINA CHEN MD Ibuprofen Tablet (Motrin Tablet) (04/04/22 21:51) Knee 3 View Left (04/04/22 21:51) Ankle 3 View Left (04/04/22 21:51) Harpal Bandage (04/04/22 23:28) Vital Signs/I&O 04/04/22 04/04/22 04/04/22 21:34 22:39 23:30 Temp 36.3 36.3 36.0 Pulse 84 80 Resp 20 20 B/P (MAP) 137/74 (95) 131/69 Pulse Ox 98 98 O2 Delivery Room Air Room Air Blood Pressure Mean: 95 Progress Progress Note #1: Progress Note Discussed with patient about giving Toradol shot help with pain. Initially patient agreed but then after I left the room she told the nurse that she would not take the shot. She agreed to taking a pain pill of an NSAID. She was willing to get x-rays to look for any acute injury with her knee and ankle since they were hurting more after the fall. Progress Note #2: Progress Note No acute bony abnormality on the x-rays of the knee and ankle. Will offer her splint and Harpal bandage. She states that she has knee immobilizer at home already from a previous visit. Counseled on follow-up and return precautions. Since she felt like the diclofenac gel to the most good for her will re-order that. Diagnostic Imaging Diagonstic Imaging: Xray Plain Films/CT/US/NM/MRI: ankle Comments [facility] [place] NAME: PITER DOVE [facility] REC#: [id number] PT STATUS: REG ER : 2000 PHYSICIAN: ROSALINA CHEN MD ADMIT DATE: 04/04/22/ER FS Signed Date of Exam:04/04/22 ANKLE 3 VIEW LEFT EXAMINATION: Left ankle 3 views HISTORY: Leg injury COMPARISON: 05/02/2020 FINDINGS: The alignment is normal. No fracture is seen. The mortise is intact. Talar dome is normal. Joint spaces are normal. IMPRESSION: 1. No fracture. Dictated by: Dictated on workstation # [id number] Dict: 04/04/224 Trans: 04/04/222248 [facility] [id number] Interpreted by: GERI CALHOUN MD Electronically signed by: GERI CALHOUN MD 04/04/229 Diagonstic Imaging: Xray Plain Films/CT/US/NM/MRI: knee Comments [facility] [place], [place] NAME: PITER DOVE [facility] REC#: [id number] PT STATUS: REG ER : 2000 PHYSICIAN: ROSALINA CHEN MD ADMIT DATE: 04/04/22/ER FS Signed Date of Exam:04/04/22 KNEE 3 VIEW LEFT EXAMINATION: Left knee 3 views HISTORY: Knee injury 01/29/2022 COMPARISON: FINDINGS: The alignment is normal. No fracture is seen. Joint spaces are normal. There is no joint effusion. IMPRESSION: 1. No fracture. Dictated by: Dictated on workstation # [id number] Dict: 04/04/222244 Trans: 04/04/222258 [facility] [id number] Interpreted by: GERI CALHOUN MD Electronically signed by: GERI CALHOUN MD 04/04/222258 Departure Impression Primary Impression: Sprain of left knee Qualified Codes: S83.92XA - Sprain of unspecified site of left knee, initial encounter Additional Impressions: Left ankle sprain Qualified Codes: S93.402A - Sprain of unspecified ligament of left ankle, initial encounter Fall Qualified Codes: W19.XXXA - Unspecified fall, initial encounter Disposition: 01 HOME, SELF-CARE Condition: Stable Departure-Patient Inst. Decision time for Depature: 23:22 Referrals: [facility] [place] (PCP) Primary Care Physician KERRIE CALVIN APRN (Family) Primary Care Physician Patient Instructions: Knee Sprain ED, Preventing Falls ED, Ankle Sprain ED, Using Cold for Pain Add. Discharge Instructions: Use Harpal bandage for support and compression. Ice 15 to 20 minutes every few hours as needed to help with pain and swelling. Try using the diclofenac gel to help with pain. Check back with your regular provider about continued symptoms. All discharge instructions reviewed with patient and/or family. Voiced understanding. Scripts Diclofenac Sodium (Diclofenac Sodium) 1 % Gel..gram. 100 GM TP UD for Arthritis pain for 14 Days, #1 TUBE 1 Refill Apply 4 grams to knee QID for pain Prov: ROSALINA CHEN MD 04/04/22 ROSALINA CHEN MD Apr 04, 2022 23:21
[2022-04-04] MEDS ORDERED: DICL100G13 TP (23:27)
[2022-04-04 23:30] VITALS: BP 131/69
== END 2022-04-04 23:30 | disposition home or self-care (01) ==
LOC: EDUNIT# 21:34 → ER FS 21:35
DX: S83.92XA Sprain of unspecified site of left knee, initial encounter (principal); S93.402A Sprain of unspecified ligament of left ankle, initial encounter; M17.0 Bilateral primary osteoarthritis of knee; T39.396A Underdosing of other nonsteroidal anti-inflammatory drugs [NSAID], initial encounter; F17.290 Nicotine dependence, other tobacco product, uncomplicated; X50.1XXA Overexertion from prolonged static or awkward postures, initial encounter; W18.30XA Fall on same level, unspecified, initial encounter
CPT/HCPCS: 73562; 73610

== ENCOUNTER 2022-04-13 18:00 | Emergency (ER) | payer MEDICAID ==
[~2022-04-13 18:00] MED LIST changes: +DICL100G13 TP
[2022-04-13 18:18] LABS: BILIRUBIN,URINE 1+ (NEGATIVE); CLARITY,URINE TURBID; COLOR,URINE ORANGE; GLUCOSE, URINE (UA) NEGATIVE (NEGATIVE); KETONES,URINE TRACE (NEGATIVE); LEUKOCYTE ESTERASE ,URINE NEGATIVE (NEGATIVE); NITRITE,URINE NEGATIVE (NEGATIVE); PROTEIN,URINE TRACE (NEGATIVE)
[2022-04-13] MEDS ORDERED: KETOROLAC 30 MG/ML VIAL IVP STA (18:23)
[2022-04-13] MEDS ORDERED: NS IV 1000 ML 1,000 ML IV STA (18:23)
--- NOTE | 2022-04-13 18:29 | ED General ---
General Chief Complaint: - Reproductive Stated Complaint: ABD PAIN Nursing Triage Note: PT REPORTS SINCE GETTING THE DEPO INJECTION SHE HAS BEEN HAVING SPOTTING AND "BREATHROUGH" BLEEDING FOR ABOUT 7 DAYS NOW. Source of Information: Patient History of Present Illness Date Seen by Provider: Apr 13, 2022 Time Seen by Provider: 18:01 Initial Comments 21 yo female presenting with complaint of pain in her pelvis and vaginal bleeding. She states that she has been bleeding and spotting for over 7 days now. She was seen and the clinic as well as urgent care. They told her it was related to breakthrough bleeding from her Depo-Provera shot. She is on Provera but was still bleeding. She feels like she gets dizzy and lightheaded at times. Since she was having the symptoms she plans on going back to see Dr. Houston in [place] but does not have an appointment until Sunday. She was concerned about the bleeding so she came into the emergency department tonight. She denies pain with urination, fever, chills, nausea, vomiting, diarrhea, change in bowels. Timing/Duration: 1 Week Severity: Moderate Associated Systoms: No Chest Pain, No Cough, No Diaphoresis, No Fever/Chills, No Headaches, No Loss of Appetite, No Malaise, No Nausea/Vomiting, No Rash, No Seizure, No Shortness of Air, No Syncope, No Weakness Allergies and Home Medications Allergies Coded Allergies: azithromycin (Verified Allergy, Unknown, hives, 01/30/19) "breaks me out" Patient Home Medication List Home Medication List Reviewed: Yes Diclofenac Sodium (Diclofenac Sodium) 1 % Gel..gram., 100 GM TP UD Prescribed by: ROSALINA CHEN on 04/13/22 185 Hydrocodone/Acetaminophen (Hydrocodone/Acetaminophen 5 MG/325 MG TAB) 1 Each Tablet, 1 TAB PO Q4-6HR Prescribed by: MARY CAGLE on 01/31/19 004 Ibuprofen (Ibuprofen) 800 Mg Tablet, 800 MG PO Q8H PRN for PAIN Prescribed by: ROSALINA CHEN on 01/29/222016 Sulfamethoxazole/Trimethoprim (Bactrim Ds Tablet) 1 Each Tablet, 1 EACH PO BID Prescribed by: LOUIS ALCOCER on 11/17/20 4522 Review of Systems Review of Systems Constitutional: No chills; dizziness (sometimes when she is up walking); No fever EENTM: no symptoms reported Respiratory: no symptoms reported Cardiovascular: no symptoms reported Gastrointestinal: see HPI Genitourinary: see HPI Musculoskeletal: no symptoms reported Skin: no symptoms reported Psychiatric/Neurological: No Symptoms Reported Hematologic/Lymphatic: Denies Blood Clots, Denies Easy Bleeding, Denies Easy Bruising Past Wqsativ-Gfbrcr-Fymmra Hx Patient Social History Tobacco Use?: No Use of E-Cig and/or Vaping dev: Yes E-Cig or Vaping type used: Nicotine Substance use?: No Alcohol Use?: No Pt feels they are or have been: No Immunizations Up To Date PED Vaccines UTD: Yes First/Initial COVID19 Vaccinat: May 2021 Second COVID19 Vaccination Elio: May 2021 Third COVID19 Vaccination Date: May 2021 Seasonal Allergies Seasonal Allergies: No Past Medical History Surgery/Hospitalization HX: Arthritis in Bilateral knees, Bipolar/Depression Surgeries: No Respiratory: No Cardiac: No Neurological: No Genitourinary: No Gastrointestinal: No Musculoskeletal: No Endocrine: No HEENT: No Cancer: No Psychosocial: Yes Bipolar, Depression Integumentary: No Blood Disorders: No Physical Exam Vital Signs Vital Signs - First Documented 04/13/22 18:05 Temp 36.3 Pulse 93 Resp 18 B/P (MAP) 141/84 (103) Pulse Ox 97 O2 Delivery Room Air Capillary Refill : Less Than 3 Seconds Height, Weight, BMI Height: 5'7.00" Weight: 245lbs. 0oz. 111.788768dz; 41.00 BMI Method:Stated General Appearance: No Apparent Distress, Obese HEENT: PERRL/EOMI, Pharynx Normal Neck: Full Range of Motion, Normal Inspection, Non Tender, Supple Respiratory: Chest Non Tender, Lungs Clear, Normal Breath Sounds, No Accessory Muscle Use, No Respiratory Distress Cardiovascular: Regular Rate, Rhythm, No Edema, No Gallop, No JVD, No Murmur, Normal Peripheral Pulses Gastrointestinal: Normal Bowel Sounds, No Pulsatile Mass, Soft; No Distended, No Guarding, No Rebound; Tenderness (epigastric ) Rectal: Deferred Extremity: Normal Capillary Refill, Normal Inspection, No Pedal Edema Neurologic/Psychiatric: Alert, Oriented x3, color maker II-XII Norm as Tested Skin: Normal Color, Warm/Dry Progress/Results/Core Measures Suspected Sepsis SIRS Temperature: Pulse: 93 Respiratory Rate: 18 Laboratory Tests 04/13/22 18:28: White Blood Count 11.9H Blood Pressure 141 /84 Mean: 103 Laboratory Tests 04/13/22 18:28: Creatinine 0.74, Platelet Count 241, Total Bilirubin 0.2 Results/Orders Lab Results Laboratory Tests Test 04/13/22 18:05 04/13/22 18:28 Range/Units Urine Color ORANGE Urine Clarity TURBID Urine pH 6.0 5-9 Urine Specific [place] 1.025 H 1.016-1.022 Urine Protein TRACE H NEGATIVE Urine Glucose (UA) NEGATIVE NEGATIVE Urine Ketones TRACE H NEGATIVE Urine Nitrite NEGATIVE NEGATIVE Urine Bilirubin 1+ H NEGATIVE Urine Urobilinogen 1.0 < = 1.0 MG/DL Urine Leukocyte Esterase NEGATIVE NEGATIVE Urine RBC (Auto) 3+ H NEGATIVE Urine RBC >100 H /HPF Urine WBC 2-5 /HPF Urine Squamous Epithelial Cells 25-50 H /HPF Urine Crystals NONE /LPF Urine Bacteria FEW H /HPF Urine Casts NONE /LPF Urine Mucus SMALL H /LPF Urine Culture Indicated NO White Blood Count 11.9 H 4.3-11.0 10^3/uL Red Blood Count 5.06 3.80-5.11 10^6/uL Hemoglobin 13.9 11.5-16.0 g/dL Hematocrit 43 35-52 % Mean Corpuscular Volume 85 80-99 fL Mean Corpuscular Hemoglobin 28 25-34 pg Mean Corpuscular Hemoglobin Concent 32 32-36 g/dL Red Cell Distribution Width 13.5 10.0-14.5 % Platelet Count 241 130-400 10^3/uL Mean Platelet Volume 11.6 9.0-12.2 fL Immature Granulocyte % (Auto) 0 % Neutrophils (%) (Auto) 70 42-75 % Lymphocytes (%) (Auto) 22 12-44 % Monocytes (%) (Auto) 4 0-12 % Eosinophils (%) (Auto) 3 0-10 % Basophils (%) (Auto) 0 0-10 % Neutrophils # (Auto) 8.3 H 1.8-7.8 10^3/uL Lymphocytes # (Auto) 2.6 1.0-4.0 10^3/uL Monocytes # (Auto) 0.5 0.0-1.0 10^3/uL Eosinophils # (Auto) 0.4 H 0.0-0.3 10^3/uL Basophils # (Auto) 0.0 0.0-0.1 10^3/uL Immature Granulocyte # (Auto) 0.0 0.0-0.1 10^3/uL Sodium Level 140 135-145 MMOL/L Potassium Level 3.9 3.6-5.0 MMOL/L Chloride Level 107 98-107 MMOL/L Carbon Dioxide Level 21 21-32 MMOL/L Anion Gap 12 5-14 MMOL/L Blood Urea Nitrogen 14 7-18 MG/DL Creatinine 0.74 0.60-1.30 MG/DL Estimat Glomerular Filtration Rate 117 BUN/Creatinine Ratio 19 Glucose Level 144 H 70-105 MG/DL Calcium Level 9.5 8.5-10.1 MG/DL Corrected Calcium 9.5 8.5-10.1 MG/DL Total Bilirubin 0.2 0.1-1.0 MG/DL Aspartate Amino Transf (AST/SGOT) 28 5-34 U/L Alanine Aminotransferase (ALT/SGPT) 49 0-55 U/L Alkaline Phosphatase 80 40-136 U/L Total Protein 6.7 6.4-8.2 GM/DL Albumin 4.0 3.2-4.5 GM/DL Lipase 33 8-78 U/L My Orders Orders - ROSALINA CHEN MD Ua Culture If Indicated (04/13/22 18:05) Urine Bedside (04/13/22 18:05) Comprehensive Metabolic Panel (04/13/22 18:23) Lipase (04/13/22 18:23) Ed Iv/Invasive Line Start (04/13/22 18:23) Cbc With Automated Diff (04/13/22 18:23) Ct Abdomen/Pelvis Wo (04/13/22 18:23) Ns Iv 1000 Ml (Sodium Chloride 0.9%) (04/13/22 18:23) Ketorolac Injection (Toradol Injection) (04/13/22 18:23) Vital Signs/I&O 04/13/22 04/13/22 18:05 19:20 Temp 36.3 36.3 Pulse 93 88 Resp 18 18 B/P (MAP) 141/84 (103) 138/79 Pulse Ox 97 96 O2 Delivery Room Air Room Air Capillary Refill : Less Than 3 Seconds Blood Pressure Mean: 103 Progress Note #1: Progress Note check labs and blood count. CT scan of abdomen/pelvis without contrast since she is having diffuse abdominal pain complaints of pelvic and epigastric pain. Give NS 1 L IVF bolus to help with hydration and complaint of feeling dizzy with standing sometimes. Toradol 30 mg IV to help with abdominal and pelvic pain. Progress Note #2: Time: 18:44 Progress Note CBC with WBC count at upper limit of normal 11.9. Hgb ok at 13.9. UA has blood in it since she has vaginal bleeding and elevated specific gravity to go with some dehydration. CT scan does not show acute process in abdomen or pelvis. no free fluid or obvious abnormality of uterus or ovaries. Progress Note #3: Progress Note chemistry stable as well without acute significant abnormality. Discharge to home after 1 L of NS IVF infused. Encourage po fluids and given outpatient order for pelvic ultrasound. Encouraged to continue taking the Provera to help with vaginal bleeding and to check back with Dr. Houston as soon as possible about her bleeding and pelvic pain since she had the Depoprovera shot Diagnostic Imaging Diagonstic Imaging: CT Plain Films/CT/US/NM/MRI: abdomen, pelvis Comments NAME: DOVEPITER [facility] REC#: [id number] PT STATUS: REG ER : 2000 PHYSICIAN: ROSALINA CHEN MD ADMIT DATE: 04/13/22/ER FS Draft Date of Exam:04/13/22 CT ABDOMEN/PELVIS WO PROCEDURE: CT abdomen and pelvis without contrast. TECHNIQUE: Multiple contiguous axial images were obtained through the abdomen and pelvis without the use of intravenous contrast. Auto Exposure Controls were utilized during the CT exam to meet ALARA standards for radiation dose reduction. INDICATION: Generalized abdominal pain. Irregular menstrual bleeding. COMPARISON: 01/31/2019. FINDINGS: The lung bases demonstrate no finding of pneumonia or edema. There is no effusion or pericardial collection. The liver demonstrates no evidence of a focal intrahepatic abnormality. The gallbladder is contracted. There is no radiodense stone or evidence of biliary dilatation. Spleen is normal. The pancreas is unremarkable. There is no adrenal mass. The kidneys demonstrate no hydronephrosis or perinephric fat stranding. There is no evidence of urolithiasis. The stomach is distended with food products. There is no small or large bowel dilation. There is moderate stool within the colon. The appendix is normal. There is no finding of colonic thickening or pericolonic fat stranding. There is no focal inflammation of the omentum or mesentery. The bladder is unremarkable. The uterus and adnexa are unremarkable by CT. There is no pelvic free fluid. There is no finding of adenopathy. Aorta is normal in caliber. There is no acute or suspicious osseous abnormality. IMPRESSION: 1. No CT finding of an acute inflammatory or obstructive process within the abdomen or pelvis. 2. No finding of urolithiasis or hydronephrosis. There is no biliary dilatation. 3. No bowel obstruction or appendicitis. 4. No pelvic free fluid. Dictated on workstation # [id number] Dict: 04/13/22 1838 Trans: 04/13/22 1842 [id number] Interpreted by: NINA AYALA MD Electronically signed by: Reviewed: Reviewed by Me Departure Impression Primary Impression: Irregular menstrual bleeding Additional Impressions: Pelvic pain Epigastric abdominal pain Dehydration Disposition: HOME, SELF-CARE Condition: Stable Departure-Patient Inst. Decision time for Depature: 18:59 Referrals: [facility] [place]) Primary Care Physician TY HOUSTON DO Patient Instructions: Control Options, Bleeding Between Periods, Pelvic Pain ED Add. Discharge Instructions: Call the clinic in the morning after 8 or 830 am, at [phone] and let them know you have an ultrasound order and wanted to see if Annel was available to do the test for you. If they can not do the Ultrasound at [facility] then you may go to [facility] to have it done. You would call the radiology scheduling office at [phone] and let them know you have an order for ultrasound. They should be able to give you a time to have the test done, but you would have to drive to [place] to have it performed. Stay well hydrated and drink plenty of fluids. Take a multivitamin with Iron to help build up your blood count. Check back with Dr. Houston as soon as possible about your bleeding from the Depo- Provera shot. All discharge instructions reviewed with patient and/or family. Voiced understanding. Scripts Diclofenac Sodium (Diclofenac Sodium) 1 % Gel..gram. 100 GM TP UD for Arthritis pain for 14 Days, #1 TUBE 1 Refill Apply 4 grams to knee QID for pain Prov: ROSALINA CHEN MD 04/13/22 ROSALINA CHEN MD Apr 13, 2022 18:29
[2022-04-13 18:30] LABS: RBC,URINE >100 /HPF
[2022-04-13 18:31] LABS: BACTERIA,URINE FEW /HPF; SQUAMOUS EPITHELIAL CELL,UR 25-50 /HPF
[2022-04-13 18:36] LABS: BASOPHILS % (AUTO) 0 % (0-10); EOSINOPHILS # (AUTO) 0.4 10^3/uL (0.0-0.3); EOSINOPHILS % (AUTO) 3 % (0-10); HEMATOCRIT 43 % (35-52); HEMOGLOBIN 13.9 g/dL (11.5-16.0); LYMPHOCYTES # (AUTO) 2.6 10^3/uL (1.0-4.0); LYMPHOCYTES % (AUTO) 22 % (12-44); MEAN CORPUSCULAR HEMOGLOBIN 28 pg (25-34); MEAN CORPUSCULAR HGB CONC 32 g/dL (32-36); MEAN CORPUSCULAR VOLUME 85 fL (80-99); MEAN PLATELET VOLUME 11.6 fL (9.0-12.2); MONOCYTES # (AUTO) 0.5 10^3/uL (0.0-1.0); MONOCYTES % (AUTO) 4 % (0-12); NEUTROPHILS # (AUTO) 8.3 10^3/uL (1.8-7.8); NEUTROPHILS % (AUTO) 70 % (42-75); PLATELET COUNT 241 10^3/uL (130-400); WHITE BLOOD COUNT 11.9 10^3/uL (4.3-11.0)
--- NOTE | 2022-04-13 18:43 | Diagnostic Imaging Report ---
PROCEDURE: CT abdomen and pelvis without contrast. TECHNIQUE: Multiple contiguous axial images were obtained through the abdomen and pelvis without the use of intravenous contrast. Auto Exposure Controls were utilized during the CT exam to meet ALARA standards for radiation dose reduction. INDICATION: Generalized abdominal pain. Irregular menstrual bleeding. COMPARISON: 01/31/2019. FINDINGS: The lung bases demonstrate no finding of pneumonia or edema. There is no effusion or pericardial collection. The liver demonstrates no evidence of a focal intrahepatic abnormality. The gallbladder is contracted. There is no radiodense stone or evidence of biliary dilatation. Spleen is normal. The pancreas is unremarkable. There is no adrenal mass. The kidneys demonstrate no hydronephrosis or perinephric fat stranding. There is no evidence of urolithiasis. The stomach is distended with food products. There is no small or large bowel dilation. There is moderate stool within the colon. The appendix is normal. There is no finding of colonic thickening or pericolonic fat stranding. There is no focal inflammation of the omentum or mesentery. The bladder is unremarkable. The uterus and adnexa are unremarkable by CT. There is no pelvic free fluid. There is no finding of adenopathy. Aorta is normal in caliber. There is no acute or suspicious osseous abnormality. IMPRESSION: 1. No CT finding of an acute inflammatory or obstructive process within the abdomen or pelvis. 2. No finding of urolithiasis or hydronephrosis. There is no biliary dilatation. 3. No bowel obstruction or appendicitis. 4. No pelvic free fluid. Dictated by: Dictated on workstation # [id number]
[2022-04-13] MEDS ORDERED: DICL100G13 TP (18:59)
[2022-04-13 19:04] LABS: POTASSIUM 3.9 MMOL/L (3.6-5.0)
[2022-04-13 19:06] LABS: CREATININE SERUM 0.74 MG/DL (0.60-1.30)
[2022-04-13 19:12] LABS: BILIRUBIN,TOTAL 0.2 MG/DL (0.1-1.0); CALCIUM 9.5 MG/DL (8.5-10.1); TOTAL PROTEIN 6.7 GM/DL (6.4-8.2)
[2022-04-13 19:20] VITALS: BP 138/79
== END 2022-04-13 19:20 | disposition home or self-care (01) ==
LOC: EDUNIT# 18:00 → ER FS 18:01
DX: N92.6 Irregular menstruation, unspecified (principal); E86.0 Dehydration; E66.9 Obesity, unspecified; F17.290 Nicotine dependence, other tobacco product, uncomplicated; Z68.41 Body mass index [BMI] 40.0-44.9, adult
CPT/HCPCS: 36415; 74176; 80053; 81000; 83690; 84703; 85025

== ENCOUNTER 2022-07-17 20:54 | Emergency (ER) | payer MEDICAID ==
[~2022-07-17] VITALS: Ht 170.1 cm; Wt 125.6 kg
[2022-07-17 20:58] VITALS: BP 138/92
[2022-07-17] MEDS ORDERED: AUGMENTIN 875 MG TAB (AMOXICILLIN/CLAVULANATE) PO STA (21:06)
[2022-07-17] MEDS ORDERED: AMOX-356 PO (21:28)
--- NOTE | 2022-07-17 21:28 | ED General ---
General Chief Complaint: Bite-Animal/Human/Insect Stated Complaint: DOG BITE,L LEG WOUNDS Nursing Triage Note: Patient states that she was bitten by an unknown dog at approximately noon today. Vaccination status of the dog is unknow. Patient states she called EMS and they bandaged the area. A report was made to animal control and law enforcement is present at the ER. Patient reports that the wound is oozing and she wanted to get it checked out. Source of Information: Patient Exam Limitations: No Limitations History of Present Illness Date Seen by Provider: Jul 17, 2022 Time Seen by Provider: 21:00 Initial Comments Patient is a 21-year-old female who presents with dog bite to her left leg. Patient was bit by unknown dog dog 10 hours prior to ED arrival. The dog bite was unprovoked. Patient immediately washed the area but reports increased pain tenderness and swelling this evening. She is continue to walk on her leg. Tetanus and rabies are up-to-date. No other symptoms or complaints. Animal control notified. Timing/Duration: 4-6 Hours Severity: Moderate Modifying Factors: improves with Other Associated Systoms: Other Allergies and Home Medications Allergies Coded Allergies: azithromycin (Verified Allergy, Unknown, hives, 01/30/19) "breaks me out" Patient Home Medication List Home Medication List Reviewed: Yes Diclofenac Sodium (Diclofenac Sodium) 1 % Gel..gram., 100 GM TP UD Prescribed by: ROSALINA CHEN on 04/13/22 185 Hydrocodone/Acetaminophen (Hydrocodone/Acetaminophen 5 MG/325 MG TAB) 1 Each Tablet, 1 TAB PO Q4-6HR Prescribed by: MARY CAGLE on 01/31/19 0047 Ibuprofen (Ibuprofen) 800 Mg Tablet, 800 MG PO Q8H PRN for PAIN Prescribed by: ROSALINA CHEN on 01/29/222016 Sulfamethoxazole/Trimethoprim (Bactrim Ds Tablet) 1 Each Tablet, 1 EACH PO BID Prescribed by: LOUIS ALCOCER on 11/17/20 3130 Review of Systems Review of Systems Constitutional: see HPI Musculoskeletal: see HPI Past Awanqir-Wwwpye-Iduyqg Hx Patient Social History Tobacco Use?: No Use of E-Cig and/or Vaping dev: Yes E-Cig or Vaping type used: Nicotine Substance use?: No Alcohol Use?: No Pt feels they are or have been: No Immunizations Up To Date PED Vaccines UTD: Yes First/Initial COVID19 Vaccinat: May 2021 Second COVID19 Vaccination Elio: May 2021 Third COVID19 Vaccination Date: May 2021 Seasonal Allergies Seasonal Allergies: No Past Medical History Surgery/Hospitalization HX: Arthritis in Bilateral knees, Bipolar/Depression Surgeries: No Respiratory: No Cardiac: No Neurological: No Genitourinary: No Gastrointestinal: No Musculoskeletal: No Endocrine: No HEENT: No Cancer: No Psychosocial: Yes Bipolar, Depression Integumentary: No Blood Disorders: No Physical Exam Vital Signs Vital Signs - First Documented 07/17/22 20:58 Temp 37.0 Pulse 91 Resp 14 B/P (MAP) 138/92 (107) Pulse Ox 98 O2 Delivery Room Air Capillary Refill : Less Than 3 Seconds Height, Weight, BMI Height: 5'7.00" Weight: 245lbs. 0oz. 111.618300bz; 43.00 BMI Method:Stated General Appearance: No Apparent Distress Extremity: Calf Tenderness, Swelling Focused Exam Sepsis Stage: Ruled Out Progress/Results/Core Measures Suspected Sepsis SIRS Temperature: Pulse: 91 Respiratory Rate: 14 Blood Pressure 138 /92 Mean: 107 Results/Orders My Orders Orders - MARY CAGLE DO Amoxicillin/Clavulanate Tablet (Augmenti (07/17/22 21:06) Ibuprofen Tablet (Motrin Tablet) (07/17/22 21:30) Medications Given in ED Current Medications Medications Dose Ordered Sig/Kevin Route Start Time Stop Time Status Last Admin Dose Admin Ibuprofen 600 mg ONCE ONCE PO 07/17/22 21:30 07/17/22 21:31 07/17/22 21:21 600 MG Vital Signs/I&O 07/17/22 20:58 Temp 37.0 Pulse 91 Resp 14 B/P (MAP) 138/92 (107) Pulse Ox 98 O2 Delivery Room Air Capillary Refill : Less Than 3 Seconds Blood Pressure Mean: 107 Departure Communication (Admissions) Antibiotics and ibuprofen given. Recommendations are watchful waiting, PCP follow-up for reevaluation. Return precautions reviewed. Patient verbalizes understanding agreement discharge instructions prior to departure. Impression Primary Impression: Dog bite of left lower leg Disposition: HOME, SELF-CARE Condition: Stable Departure-Patient Inst. Decision time for Depature: 21:27 Patient Instructions: Animal Bites ED Add. Discharge Instructions: Please keep wound clean and dry and covered. Keep your leg elevated and take ibuprofen for pain and complete full course of antibiotics. Follow-up with your PCP for reevaluation. Return to the ED if new or worsening symptoms. All discharge instructions reviewed with patient and/or family. Voiced understanding. Scripts Amoxicillin/Potassium Clav (Augmentin Xr 1,000-62.5 Tab) 1,000 Mg-62.5 Mg Tab.er.12h 1 EACH PO BID, #20 TAB Prov: MARY CAGLE DO 07/17/22 MARY CAGLE DO Jul 17, 2022 21:28
[2022-07-17] MEDS ORDERED: IBUPROFEN 600 MG (MOTRIN) TAB PO ONE (21:30)
== END 2022-07-17 21:32 | disposition home or self-care (01) ==
LOC: EDUNIT# 20:54 → ER FS 20:55
DX: S81.852A Open bite, left lower leg, initial encounter (principal); F17.290 Nicotine dependence, other tobacco product, uncomplicated; Z88.1 Allergy status to other antibiotic agents; W54.0XXA Bitten by dog, initial encounter
CPT/HCPCS: 99283

== ENCOUNTER 2023-02-04 16:35 | Emergency (ER) | payer MEDICAID ==
[~2023-02-04] VITALS: Ht 170.1 cm; Wt 127.6 kg
[~2023-02-04 16:35] MED LIST changes: +AMOX-356 PO
--- NOTE | 2023-02-04 16:49 | ED Back Pain ---
General Chief Complaint: Back Problems Stated Complaint: LOWER BACK PAIN Source of Information: Patient Exam Limitations: No Limitations History of Present Illness Date Seen by Provider: February 04, 2023 Time Seen by Provider: 16:39 Initial Comments 22-year-old female presents to the emergency department today for low back pain. It is midline and bilateral lumbar region without any radiation. Aggravated by movement, twisting and walking. Symptoms present for about 1 week. No urinary symptoms. Normal menstrual cycles. No changes in bowel habits. No saddle anesthesia, lower extremity weakness numbness or tingling. All other systems reviewed and negative except documented per HPI. Voice recognition software was used to help create this chart Allergies and Home Medications Allergies Coded Allergies: azithromycin (Verified Allergy, Unknown, hives, 01/30/19) "breaks me out" Patient Home Medication List Home Medication List Reviewed: Yes Amoxicillin/Potassium Clav (Augmentin Xr 1,000-62.5 Tab) 1,000 Mg-62.5 Mg Tab.er.12h, 1 EACH PO BID Prescribed by: MARY CAGLE on 07/17/222127 Diclofenac Sodium (Diclofenac Sodium) 1 % Gel..gram., 100 GM TP UD Prescribed by: ROSALINA CHEN on 04/13/22 1859 Hydrocodone/Acetaminophen (Hydrocodone/Acetaminophen 5 MG/325 MG TAB) 1 Each Tablet, 1 TAB PO Q4-6HR Prescribed by: MARY CAGLE on 01/31/19 0047 Ibuprofen (Ibuprofen) 800 Mg Tablet, 800 MG PO Q8H PRN for PAIN Prescribed by: ROSALINA CHEN on 01/29/222016 Sulfamethoxazole/Trimethoprim (Bactrim Ds Tablet) 1 Each Tablet, 1 EACH PO BID Prescribed by: LOUIS ALCOCER on 11/17/20 2305 Review of Systems Constitutional: see HPI Past Alvieds-Donbkm-Snsamx Hx Patient Social History Tobacco Use?: Yes Smokeless Tobacco Frequency: Current Everyday User Use of E-Cig and/or Vaping dev: Yes E-Cig or Vaping type used: Nicotine Use of E-Cig and/or Vaping Guillermo: Current Everyday User Substance use?: No Alcohol Use?: No Immunizations Up To Date PED Vaccines UTD: Yes First/Initial COVID19 Vaccinat: May 2021 Second COVID19 Vaccination Elio: May 2021 Third COVID19 Vaccination Date: May 2021 Seasonal Allergies Seasonal Allergies: No Past Medical History Surgery/Hospitalization HX: Arthritis in Bilateral knees, Bipolar/Depression Surgeries: No Respiratory: No Cardiac: No Neurological: No Genitourinary: No Gastrointestinal: No Musculoskeletal: No Endocrine: No HEENT: No Cancer: No Psychosocial: Yes Bipolar, Depression Integumentary: No Blood Disorders: No Physical Exam Vital Signs Vital Signs - First Documented 02/04/23 16:43 Temp 36.8 Pulse 90 Resp 16 B/P (MAP) 163/104 (123) Pulse Ox 100 Capillary Refill : Height, Weight, BMI Height: 5'7.00" Weight: 245lbs. 0oz. 111.702241mu; 43.00 BMI Method:Stated General Appearance: No Apparent Distress, WD/WN HEENT: Normal ENT Inspection, Pharynx Normal Neck: Full Range of Motion, Non Tender, Supple Cardiovascular: Regular Rate, Rhythm, No Murmur, Normal Peripheral Pulses Respiratory: Chest Non Tender, Lungs Clear, Normal Breath Sounds, No Accessory Muscle Use, No Respiratory Distress Gastrointestinal: No Organomegaly, Non Tender, Soft, Other (morbidly obese) Back: Normal Inspection, No CVA Tenderness, Vertebral Tenderness (Tenderness palpation midline lumbar spine and laterally in the paraspinal region, and help to the lateral lumbar region. No skin changes. No step-offs or deformity.) Extremity: Normal Capillary Refill, Normal Inspection, Normal Range of Motion, Non Tender, No Calf Tenderness Neurologic/Psychiatric: Alert, Oriented x3, No Motor/Sensory Deficits Skin: Normal Color, Warm/Dry Progress/Results/Core Measures Results/Orders My Orders Orders - DU SYLVSETER DO Ua Culture If Indicated (02/04/23 16:43) Urine Bedside (02/04/23 16:43) Vital Signs/I&O 02/04/23 16:43 Temp 36.8 Pulse 90 Resp 16 B/P (MAP) 163/104 (123) Pulse Ox 100 Departure Communication (Admissions) Patient is hemodynamically stable with no red flag back pain symptoms. No indication for imaging at this time with only a weeks worth of symptoms and no neurologic problems. Treat conservatively. We did check a urine and urine test which were negative. Return sooner if she develops any lower extremity weakness numbness or tingling. Follow-up with her primary doctor should her symptoms last more than 30 days. Impression Primary Impression: Lumbar strain Qualified Codes: S39.012A - Strain of muscle, fascia and tendon of lower back, initial encounter Disposition: 01 HOME, SELF-CARE Condition: Stable Departure-Patient Inst. Referrals: [facility] [place] (PCP/Family) Primary Care Physician Patient Instructions: Low Back Pain ED Add. Discharge Instructions: Take 600 mg of ibuprofen every 6 hours as needed for pain. Increase your fluids and rest. Take ibuprofen with food so not to upset your stomach. Alternate this with Tylenol. Return to the emergency department for any severe concerns. Follow-up with your primary doctor should your symptoms persist. All discharge instructions reviewed with patient and/or family. Voiced unders tanding. DU SYLVESTER DO February 04, 2023 16:48
[2023-02-04 16:52] LABS: BILIRUBIN,URINE NEGATIVE (NEGATIVE); CLARITY,URINE CLEAR; COLOR,URINE YELLOW; GLUCOSE, URINE (UA) NEGATIVE (NEGATIVE); KETONES,URINE NEGATIVE (NEGATIVE); LEUKOCYTE ESTERASE ,URINE NEGATIVE (NEGATIVE); NITRITE,URINE NEGATIVE (NEGATIVE); PH,URINE 6.5 (5-9); PROTEIN,URINE NEGATIVE (NEGATIVE)
[2023-02-04 16:54] LABS: BACTERIA,URINE MODERATE /HPF; SQUAMOUS EPITHELIAL CELL,UR 25-50 /HPF
[2023-02-04] MEDS ORDERED: CEPH500T PO (16:58)
[2023-02-04 17:00] VITALS: BP 163/104
== END 2023-02-04 17:00 | disposition home or self-care (01) ==
LOC: EDUNIT# 16:35 → ER FS 16:36
DX: S39.012A Strain of muscle, fascia and tendon of lower back, initial encounter (principal); F17.290 Nicotine dependence, other tobacco product, uncomplicated; X58.XXXA Exposure to other specified factors, initial encounter
CPT/HCPCS: 81000; 84703; 99282

== ENCOUNTER 2023-04-07 17:58 | Emergency (ER) | payer MEDICAID ==
[~2023-04-07] VITALS: Ht 170.2 cm; Wt 130.7 kg
[~2023-04-07 17:58] MED LIST changes: +CEPH500T PO
[2023-04-07 17:59] VITALS: BP 203/107
[2023-04-07] MEDS ORDERED: BREX4TAB PO (18:05)
--- NOTE | 2023-04-07 18:07 | ED General ---
General Stated Complaint: OUT OF MEDICATION Source of Information: Patient Exam Limitations: No Limitations History of Present Illness Date Seen by Provider: Apr 07, 2023 Time Seen by Provider: 17:59 Initial Comments 22-year-old female with past medical history of depression and bipolar disorder coming in after she has been out of her Rexulti for 1 day. Her appointment is in roughly 5 days and she cannot get a refill until then. She is worried about how she feels when she is off the medication. She is not suicidal homicidal at this time. Allergies and Home Medications Allergies Coded Allergies: azithromycin (Verified Allergy, Unknown, hives, 01/30/19) "breaks me out" Patient Home Medication List Home Medication List Reviewed: Yes Amoxicillin/Potassium Clav (Augmentin Xr 1,000-62.5 Tab) 1,000 Mg-62.5 Mg Tab.er.12h, 1 EACH PO BID Prescribed by: MARY CAGLE on 07/17/222127 Brexpiprazole (Rexulti) 4 Mg Tablet, 4 MG PO DAILY Prescribed by: DERIK DIXON on 04/07/23 180 Cephalexin (Cephalexin) 500 Mg Tablet, 500 MG PO BID Prescribed by: DU SYLVESTER MD on 02/04/23 1658 Diclofenac Sodium (Diclofenac Sodium) 1 % Gel..gram., 100 GM TP UD Prescribed by: ROSALINA CHEN on 04/13/22 1859 Hydrocodone/Acetaminophen (Hydrocodone/Acetaminophen 5 MG/325 MG TAB) 1 Each Tablet, 1 TAB PO Q4-6HR Prescribed by: MARY CAGLE on 01/31/19 0047 Ibuprofen (Ibuprofen) 800 Mg Tablet, 800 MG PO Q8H PRN for PAIN Prescribed by: ROSALINA CHEN on 01/29/222016 Sulfamethoxazole/Trimethoprim (Bactrim Ds Tablet) 1 Each Tablet, 1 EACH PO BID Prescribed by: LOUIS ALCOCER on 11/17/20 2305 Review of Systems Review of Systems Constitutional: No fever EENTM: no symptoms reported Respiratory: no symptoms reported Cardiovascular: no symptoms reported Gastrointestinal: no symptoms reported Genitourinary: no symptoms reported Musculoskeletal: no symptoms reported Skin: no symptoms reported Psychiatric/Neurological: No Symptoms Reported Hematologic/Lymphatic: No Symptoms Reported Past Krfrwis-Jjuiid-Gxxujf Hx Immunizations Up To Date PED Vaccines UTD: Yes First/Initial COVID19 Vaccinat: May 2021 Second COVID19 Vaccination Elio: May 2021 Third COVID19 Vaccination Date: May 2021 Seasonal Allergies Seasonal Allergies: No Past Medical History Surgery/Hospitalization HX: Arthritis in Bilateral knees, Bipolar/Depression Surgeries: No Respiratory: No Cardiac: No Neurological: No Genitourinary: No Gastrointestinal: No Musculoskeletal: No Endocrine: No HEENT: No Cancer: No Psychosocial: Yes Bipolar, Depression Integumentary: No Blood Disorders: No Physical Exam Vital Signs Capillary Refill : Height, Weight, BMI Height: 5'7.00" Weight: 245lbs. 0oz. 111.089953by; 44.00 BMI Method:Stated General Appearance: No Apparent Distress, WD/WN Eyes: Bilateral Eye Normal Inspection Respiratory: Chest Non Tender, Lungs Clear, Normal Breath Sounds, No Accessory Muscle Use, No Respiratory Distress Cardiovascular: Regular Rate, Rhythm, No Edema, Normal Peripheral Pulses Neurologic/Psychiatric: Alert, No Motor/Sensory Deficits, Normal Mood/Affect Skin: Normal Color, Warm/Dry Progress/Results/Core Measures Suspected Sepsis SIRS Temperature: Pulse: Respiratory Rate: Blood Pressure / Mean: Results/Orders Vital Signs/I&O Capillary Refill : Progress Note : Progress Note 22-year-old female coming in for medication refill. She is not homicidal or suicidal at this time and does not need more mental health resources at this time. I will write the prescription, but she needs to try to follow-up in the future before she runs out of the medications. Departure Impression Primary Impression: Medication refill Additional Impression: Depression Qualified Codes: F33.41 - Major depressive disorder, recurrent, in partial remission Disposition: 01 HOME, SELF-CARE Condition: Stable Departure-Patient Inst. Decision time for Depature: 18:10 Referrals: ARCHANA PRUITT MD (PCP/Family) Primary Care Physician Patient Instructions: Depression, Adult ED Add. Discharge Instructions: The medicine was sent to [facility], please be sure to follow back up with your regular doctor for refills. In the future, it is best if you call well before needing a refill to get an appointment with your regular doctor before you run out. Scripts Brexpiprazole (Rexulti) 4 Mg Tablet 4 MG PO DAILY for 30 Days, #30 TAB Prov: DERIK DIXON MD 04/07/23 DERIK DIXON MD Apr 07, 2023 18:06
== END 2023-04-07 18:09 | disposition home or self-care (01) ==
LOC: EDUNIT# 17:58 → ER FS 18:00
DX: Z76.0 Encounter for issue of repeat prescription (principal); F32.A Depression, unspecified
CPT/HCPCS: 99281

== ENCOUNTER 2023-05-04 18:09 | Emergency (ER) | payer MEDICAID ==
[~2023-05-04] VITALS: Ht 165.1 cm; Wt 131.4 kg
[~2023-05-04 18:09] MED LIST changes: +BREX4TAB PO
[2023-05-04] MEDS ORDERED: THIA100T66 PO (18:47)
--- NOTE | 2023-05-04 18:47 | ED Lower Extremity ---
General Chief Complaint: Lower Extremity Stated Complaint: RT LEG NUMBNESS/TINGLING Nursing Triage Note: Patient reports she has been having numbness/tingling/heat/pain intermittently in her right leg just above her knee. Source: patient, family (Mother), RN notes reviewed History of Present Illness Date Seen by Provider: May 04, 2023 Time Seen by Provider: 18:20 Initial Comments 22-year-old female patient with history of bipolar disorder and PTSD and morbid obesity complaining of intermittent episodes of right thigh numbness and feeling hot for the last 5 days that usually happens several times a day and last for few minutes. Patient stated the episode is not related to position or activity and they are getting better with straightening her leg. Patient states that she has history of knee arthritis and wonders if it is related to her arthritis. Patient denies fever and chills, injury, history of the same problem, focal weakness, other paresthesia. Allergies and Home Medications Allergies Coded Allergies: azithromycin (Verified Allergy, Unknown, hives, 01/30/19) "breaks me out" Patient Home Medication List Home Medication List Reviewed: Yes Amoxicillin/Potassium Clav (Augmentin Xr 1,000-62.5 Tab) 1,000 Mg-62.5 Mg Tab.er.12h, 1 EACH PO BID Prescribed by: MARY CAGLE on 07/17/222127 Brexpiprazole (Rexulti) 4 Mg Tablet, 4 MG PO DAILY Prescribed by: DERIK DIXON on 04/07/23 180 Cephalexin (Cephalexin) 500 Mg Tablet, 500 MG PO BID Prescribed by: DU SYLVESTER MD on 02/04/23 165 Diclofenac Sodium (Diclofenac Sodium) 1 % Gel..gram., 100 GM TP UD Prescribed by: ROSALINA CHEN on 04/13/22 1859 Hydrocodone/Acetaminophen (Hydrocodone/Acetaminophen 5 MG/325 MG TAB) 1 Each Tablet, 1 TAB PO Q4-6HR Prescribed by: MAYR CAGLE on 01/31/19 0047 Ibuprofen (Ibuprofen) 800 Mg Tablet, 800 MG PO Q8H PRN for PAIN Prescribed by: ROSALINA CHEN on 01/29/222016 Sulfamethoxazole/Trimethoprim (Bactrim Ds Tablet) 1 Each Tablet, 1 EACH PO BID Prescribed by: LOUIS ALCOCER on 11/17/20 230 Thiamine HCl (B-1) 100 Mg Tablet, 100 MG PO DAILY Prescribed by: Alejandra rasmussen on 05/04/23 1847 Review of Systems Constitutional: no symptoms reported EENTM: no symptoms reported Respiratory: no symptoms reported Cardiovascular: no symptoms reported Gastrointestinal: no symptoms reported Genitourinary: no symptoms reported Musculoskeletal: see HPI Skin: no symptoms reported Psychiatric/Neurological: See HPI All Other Systems Reviewed Negative Unless Noted: Yes Past Lydpmov-Ijjahx-Oapcma Hx Patient Social History Tobacco Use?: Yes Tobacco type used: Cigarettes Smoking Status: Current Everyday Smoker Use of E-Cig and/or Vaping dev: Yes Substance use?: No Alcohol Use?: No Pt feels they are or have been: No Immunizations Up To Date PED Vaccines UTD: Yes First/Initial COVID19 Vaccinat: May 2021 Second COVID19 Vaccination Elio: May 2021 Third COVID19 Vaccination Date: May 2021 Seasonal Allergies Seasonal Allergies: No Past Medical History Surgery/Hospitalization HX: Bipolar Surgeries: No Respiratory: No Cardiac: No Neurological: No Genitourinary: No Gastrointestinal: No Musculoskeletal: No Endocrine: No HEENT: No Cancer: No Psychosocial: Yes Bipolar, Depression Integumentary: No Blood Disorders: No Physical Exam Vital Signs Vital Signs - First Documented 05/04/23 18:17 Temp 36.8 Pulse 103 Resp 18 B/P (MAP) 170/97 (121) Pulse Ox 100 O2 Delivery Room Air Capillary Refill : Less Than 3 Seconds Height, Weight, BMI Height: 5'7.00" Weight: 245lbs. 0oz. 111.322117hs; 48.00 BMI Method:Stated General Appearance: no apparent distress, obese (Morbidly obese) HEENT: PERRL/EOMI Neck: non-tender Cardiovascular: regular rate, rhythm Respiratory: chest non-tender, lungs clear, normal breath sounds Back: normal inspection, no CVA tenderness, no vertebral tenderness Hips: bilateral hip non-tender, bilateral hip normal inspection Legs: bilateral leg non-tender, bilateral leg normal inspection Knees: bilateral knee non-tender, bilateral knee normal inspection Ankles: bilateral ankle non-tender, bilateral ankle normal inspection Feet: bilateral foot normal inspection Neurologic/Tendon: normal sensation, normal motor functions, normal tendon functions Neurologic/Psychiatric: alert, oriented x 3 Skin: normal color, warm/dry Progress/Results/Core Measures Results/Orders Vital Signs/I&O 05/04/23 05/04/23 18:17 18:52 Temp 36.8 36.8 Pulse 103 90 Resp 18 18 B/P (MAP) 170/97 (121) 178/97 Pulse Ox 100 100 O2 Delivery Room Air Room Air Blood Pressure Mean: 148 Progress Progress Note : Progress Note 22-year-old female patient with extensive psychiatric problem and complaining of intermittent episodes of right thigh numbness and soreness for the last 5 days. Patient had unremarkable physical exam except for morbid obesity. Patient did not have paresthesia or weakness. Patient had blood pressure of 170/97 without history of hypertension. Patient denies chest pain and shortness of breath and headache and focal weakness. Patient advised to record her blood pressure and follow-up with primary care physician in 5 to 7 days. Patient advised to take thiamine and apply ice on her right thigh. Departure Impression Primary Impression: Paresthesia Additional Impression: Elevated blood pressure reading without diagnosis of hypertension Disposition: HOME, SELF-CARE Condition: Stable Departure-Patient Inst. Referrals: ARCHANA PRUITT MD (PCP/Family) Primary Care Physician Patient Instructions: Checking your blood pressure at home, Paresthesia (DC), Lowering Your Risk of High Blood Pressure Add. Discharge Instructions: Record your blood pressure and follow-up with your primary care physician in 5 to 7 days Continue home medication Apply cold pack on right thigh Return to ER as needed All discharge instructions reviewed with patient and/or family. Voiced understanding. Scripts Thiamine HCl (B-1) 100 Mg Tablet 100 MG PO DAILY, #20 TAB Prov: ALEJANDRA RASMUSSEN MD 05/04/23 ALEJANDRA RASMUSSEN MD May 04, 2023 18:47
[2023-05-04 18:52] VITALS: BP 178/97
== END 2023-05-04 18:53 | disposition home or self-care (01) ==
LOC: EDUNIT# 18:09 → ER FS 18:11
DX: R20.0 Anesthesia of skin (principal); R03.0 Elevated blood-pressure reading, without diagnosis of hypertension; E66.01 Morbid (severe) obesity due to excess calories; F17.210 Nicotine dependence, cigarettes, uncomplicated; Z68.41 Body mass index [BMI] 40.0-44.9, adult
CPT/HCPCS: 99281

== ENCOUNTER 2023-06-26 14:33 | Emergency (ER) | payer MEDICAID ==
[~2023-06-26] VITALS: Ht 170 cm; Wt 140.0 kg
[~2023-06-26 14:33] MED LIST changes: -DICL100G13 TP; +DICL100G60 TP; +KETO10TA PO; +PENI500T PO; +THIA100T66 PO
[2023-06-26 14:45] VITALS: BP_SYST 124
[2023-06-26] MEDS ORDERED: FLUT9.9S16 NS (14:54)
--- NOTE | 2023-06-26 14:54 | ED Cough/URI ---
General Chief Complaint: Cough/Cold/Flu Symptoms Stated Complaint: COUGH; NASAL CONGESTION Nursing Triage Note: Patient has had a cough for the last 4 days. Seh reports sneezing and congestion. She has been taking zyrtec. Source: patient Exam Limitations: no limitations History of Present Illness Date Seen by Provider: Jun 26, 2023 Time Seen by Provider: 14:35 Initial Comments 22-year-old female with no pertinent past medical history coming in due to what she states is a common cold. She has had nasal congestion, dry cough, mild sore throat. Denies any fever, vomiting, diarrhea, chest pain, shortness of breath, or any other concerns. She went to urgent care, they told her it was viral. She has been on Zyrtec. Otherwise denying any other acute complaints. It has been going on for a few days. Her mother is also sick. Allergies and Home Medications Allergies Coded Allergies: azithromycin (Verified Allergy, Unknown, hives, 01/30/19) "breaks me out" Patient Home Medication List Home Medication List Reviewed: Yes Amoxicillin/Potassium Clav (Augmentin Xr 1,000-62.5 Tab) 1,000 Mg-62.5 Mg Tab.er.12h, 1 EACH PO BID Prescribed by: MARY CAGLE on 07/17/222127 Brexpiprazole (Rexulti) 4 Mg Tablet, 4 MG PO DAILY Prescribed by: DERIK DIXON on 04/07/23 180 Cephalexin (Cephalexin) 500 Mg Tablet, 500 MG PO BID Prescribed by: DU SYLVESTER MD on 02/04/23 165 Diclofenac Sodium (Diclofenac Sodium) 1 % Gel..gram., 100 GM TP UD Prescribed by: ROSALINA CHEN on 04/13/22 1859 Hydrocodone/Acetaminophen (Hydrocodone/Acetaminophen 5 MG/325 MG TAB) 1 Each Tablet, 1 TAB PO Q4-6HR Prescribed by: MARY CAGLE on 01/31/19 0047 Ibuprofen (Ibuprofen) 800 Mg Tablet, 800 MG PO Q8H PRN for PAIN Prescribed by: ROSALINA CHEN on 01/29/222016 Ketorolac Tromethamine (Ketorolac Tromethamine) 10 Mg Tablet, 10 MG PO TID Prescribed by: UD SYVLESTER MD on 06/08/23 1748 Penicillin V Potassium (Penicillin V Potassium) 500 Mg Tablet, 500 MG PO TID Prescribed by: DU SYLVESTER MD on 06/08/23 1748 Sulfamethoxazole/Trimethoprim (Bactrim Ds Tablet) 1 Each Tablet, 1 EACH PO BID Prescribed by: LOUIS ALCOCER on 11/17/20 2305 Thiamine HCl (B-1) 100 Mg Tablet, 100 MG PO DAILY Prescribed by: Alejandra newman on 05/04/23 1847 Review of Systems Review of Systems Constitutional: No fever EENTM: nose congestion Respiratory: cough Cardiovascular: no symptoms reported Gastrointestinal: no symptoms reported Genitourinary: no symptoms reported Musculoskeletal: no symptoms reported Skin: no symptoms reported Psychiatric/Neurological: No Symptoms Reported Past Nglscnn-Wqyrae-Bfygnm Hx Patient Social History Tobacco Use?: Yes Use of E-Cig and/or Vaping dev: Yes Substance use?: No Alcohol Use?: No Immunizations Up To Date PED Vaccines UTD: Yes First/Initial COVID19 Vaccinat: May 2021 Second COVID19 Vaccination Elio: May 2021 Third COVID19 Vaccination Date: May 2021 Seasonal Allergies Seasonal Allergies: No Past Medical History Surgery/Hospitalization HX: Bipolar Surgeries: No Respiratory: No Cardiac: No Neurological: No Genitourinary: No Gastrointestinal: No Musculoskeletal: No Endocrine: No HEENT: No Cancer: No Psychosocial: Yes Bipolar, Depression Integumentary: No Blood Disorders: No Physical Exam Vital Signs - First Documented 06/26/23 14:45 Temp 36.6 Pulse 97 Resp 16 B/P (MAP) 124/ Pulse Ox 99 O2 Delivery Room Air Capillary Refill : Height: 5'7.00" Weight: 245lbs. 0oz. 111.379080dc; 48.00 BMI Method:Stated General Appearance: WD/WN, no apparent distress Eyes: Bilateral Eye Normal Inspection HEENT: PERRL/EOMI, normal ENT inspection, TMs normal, pharyngeal erythema; No tonsillar exudate Neck: non-tender, full range of motion, supple, normal inspection Respiratory: chest non-tender, lungs clear, normal breath sounds, no respiratory distress, no accessory muscle use Cardiovascular: regular rate, rhythm, no edema, no murmur Gastrointestinal: normal bowel sounds, non tender, soft Extremities: normal range of motion, non-tender, normal inspection, no pedal edema, no calf tenderness, normal capillary refill Neurologic/Psychiatric: no motor/sensory deficits, alert, normal mood/affect Skin: normal color, warm/dry Progress/Results/Core Measures Suspected Sepsis SIRS Temperature: Pulse: 97 Respiratory Rate: 16 Blood Pressure 124 / Mean: Results/Orders Vital Signs/I&O 06/26/23 14:45 Temp 36.6 Pulse 97 Resp 16 B/P (MAP) 124/ Pulse Ox 99 O2 Delivery Room Air Capillary Refill : Progress Note : Progress Note 22-year-old female presenting for viral URI type symptoms. ABCs were intact and vitals are stable on presentation. Physical exam reassuring, she is very well- appearing, well-hydrated, in no acute distress. Offered viral testing, she does not want at this time. We will send a prescription for nasal steroid. I believe she is stable for discharge with outpatient follow-up. She was sent home with strict return precautions. Departure Impression Primary Impression: Upper respiratory infection Qualified Codes: J06.9 - Acute upper respiratory infection, unspecified Disposition: HOME, SELF-CARE Condition: Stable Departure-Patient Inst. Decision time for Depature: 14:55 Referrals: [facility] [place] (PCP/Family) Primary Care Physician Patient Instructions: Viral Syndrome (DC) Add. Discharge Instructions: Right now this appears viral. I would not recommend oral antibiotics at this time as likely this will just make you feel worse. There is side effects of antibiotics including diarrhea. If the symptoms last more than 10 days, or you develop a fever, then I would recommend being seen again. Otherwise, continue the Zyrtec. A steroid spray for your nose has been sent to the pharmacy which you should put in each nostril daily. Scripts Fluticasone Furoate (Flonase Sensimist) 27.5 Mcg/Actuation [place].susp 1 SPRAY NS DAILY for 14 Days, #1 EA Prov: DERIK DIXON MD 06/26/23 DERIK DIXON MD Jun 26, 2023 14:54
== END 2023-06-26 14:55 | disposition home or self-care (01) ==
LOC: EDUNIT# 14:33 → ER FS 14:36
DX: J06.9 Acute upper respiratory infection, unspecified (principal); F17.290 Nicotine dependence, other tobacco product, uncomplicated
CPT/HCPCS: 99281